=== PATIENT | female | born 1995 | race Caucasian/White ===

== ENCOUNTER 2021-04-22 15:45 | Outpatient (RCR) | payer OTHER, SELFPAY ==
--- NOTE | 2021-01-27 16:39 | PTOPEVAL ---
PHYSICAL THERAPY EVALUATION AND PLAN OF CARE Thank you for referring Dasia Gerber to [facility].? The patient is scheduled to be seen for therapy? 2x/week for 4 weeks. Please review, sign, date and return this plan of care JORGE. I agree with and certify that the following plan of care is medically necessary. 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 Dasia Barrett has Family been experiencing foot pain for over 10 years. At the time it started, surgery was an option but was not taken. Then about 3 years ago, she started therapy and injections but that was interrupted by a loss in the family and the pain has gradually worsened. She states severe pain in her feet. They saw the doctor this morning and report that he wants therapy for the arches of his feet, gait assessment, and on bunions. He also ordered braces to go around the arches of her feet. Pain Assessment Timing of Pain Assessment Timing of Pain Assessment Assessment Pain Scale Pain Scale Used Numeric (1 - 10) Self Report Pain Assessment Bilateral Foot/Feet Reported Pain Level 10 Pain Description Stabbing,Throbbing Pain Frequency Chronic,Intermittent Lowest Pain Intensity 10 Greatest Pain Intensity 10 Pain Aggravating Factors Exercise/Activity,Walking, Weight Bearing/Standing Pain Behaviors None Pain Score Pain Score 10: Self Report Interventions Used Interventions Used By Clinicians Exercise Pain Relief Interventions Used By Inactivity/Rest Patient Other Alleviating Interventions dorsiflexion stretching with towel in the mornings for 10seconds each side Lower Extremity Range of Motion Ankle/Foot Range of Motion Right Ankle Dorsiflexion With Knee Extension -28 Range of Motion - Active Ankle Dorsiflexion With Knee Flexed 0 Range of Motion - Active Ankle P
--- NOTE | 2021-02-05 10:25 | PCPTNOTE ---
Patient called & cancelled scheduled appointment this date due to having increase coughing.
--- NOTE | 2021-02-27 17:24 | PTOPEVAL ---
PHYSICAL THERAPY PLAN OF CARE UPDATE AND PROGRESS REPORT Thank you for referring Dasia Gerber to [facility].? The patient is scheduled to be seen for therapy? 2x/week for 4 weeks MORE OF PHYSICAL THERAPY. Please review, sign, date and return this plan of care JORGE. I agree with and certify that the following plan of care is medically necessary. 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 Dasia Barrett has Family been experiencing foot pain for over 10 years. At the time it started, surgery was an option but was not taken. Then about 3 years ago, she started therapy and injections but that was interrupted by a loss in the family and the pain has gradually worsened. She states severe pain in her feet. They saw the doctor this morning and report that he wants therapy for the arches of his feet, gait assessment, and on bunions. He also ordered braces to go around the arches of her feet. Self Report Pain Assessment Bilateral Foot/Feet Reported Pain Level 8 Pain Description Shooting,Stabbing,Throbbing Pain Frequency Chronic,Intermittent Pain Aggravating Factors Exercise/Activity,Walking, Weight Bearing/Standing Pain Behaviors None Pain Score Pain Score 8: Self Report Interventions Used Interventions Used By Clinicians Education,Exercise,Heat, Ultrasound Pain Relief Interventions Used By Inactivity/Rest Patient Other Alleviating Interventions . Lower Extremity Range of Motion Ankle/Foot Range of Motion Right Ankle Dorsiflexion With Knee Extension -21 Range of Motion - Active Ankle Dorsiflexion With Knee Flexed 0 Range of Motion - Active Ankle Plantarflexion Range of Motion - 80 Active Query Text: Ankle Eversion Range of Motion - Active 15 Ankle Inversion Range of Motion - Active 41 Left Ankle Dorsiflexion With Knee Extension -
--- NOTE | 2021-04-01 08:24 | PTOPEVAL ---
PHYSICAL THERAPY PROGRESS REPORT Thank you for referring Dasia Gerber to [facility].? The patient is scheduled to be seen for therapy? 2x/week for 4 weeks. Please review, sign, date and return this plan of care JORGE. I agree with and certify that the following plan of care is medically necessary. 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 Subjective Information continues to report high Query Text:As Reported By Patient/ levels of pain, but agrees Family that she is getting stronger and she is seeing improvements Self Report Pain Assessment Bilateral Foot/Feet Reported Pain Level 9 Pain Description Shooting,Stabbing,Throbbing Pain Frequency Chronic,Intermittent Pain Aggravating Factors Exercise/Activity,Walking, Weight Bearing/Standing Pain Behaviors None Pain Score Pain Score 9: Self Report Lower Extremity Range of Motion Ankle/Foot Range of Motion Right Ankle Dorsiflexion With Knee Extension 0 Range of Motion - Active Ankle Dorsiflexion With Knee Flexed 0 Range of Motion - Active Ankle Plantarflexion Range of Motion - 80 Active Query Text: Ankle Eversion Range of Motion - Active 15 Ankle Inversion Range of Motion - Active 41 Left Ankle Dorsiflexion With Knee Extension 0 Range of Motion - Active Ankle Plantarflexion Range of Motion - 80 Active Query Text: Ankle Eversion Range of Motion - Active 18 Ankle Inversion Range of Motion - Active 30 Lower Extremity Muscle Strength Testing Hip Strength Right Hip Flexion Strength 4+ Good + Hip Extension Strength 3+ Fair + Hip Abduction Strength 4 Good Left Hip Flexion Strength 4+ Good + Hip Extension Strength 3- Fair - Hip Abduction Strength 4 Good Knee Strength Bilateral Knee Flexion Strength 4+ Good + Knee Extension Strength 4+ Good + Ankle Strength Bilateral Ankle Dorsiflexion Strength 4+ Good + Ankle Plantarflexion Strength 4 Good Ankle Eversion Strength 4- Good - Ankle Inversion Strength 4+ Good + Palpation Assessment Palpation Palpation sensitivity continues to decrease Balance Assessment Time Up Go (TUG) Timed Up and Go Test (TUG) (Seconds) 8 5 Time Sit to Stand Time in Seconds 9.03 General Exercise General Exercises Side Bilateral Exercise Location feet Exercise Type Active,Resistive Exercise Description
--- NOTE | 2021-04-14 11:37 | PCPTNOTE ---
Patient called & cancelled scheduled appointment this date. No reason provided.
--- NOTE | 2021-04-16 14:42 | PCPTNOTE ---
Patient called & cancelled scheduled appointment this date due to being sick this week.
--- NOTE | 2021-04-22 15:32 | PCPTNOTE ---
Treatment date 04/09/21; charged for manual therapy performing STM to plantar fascia prone STM to gastroc; TPR right lateral gastroc; passive DF stretching to bilateral feet; charged for ultrasound on bilateral arch of foot for pain management and increase mobility with setting at 1.2 w/cm2 for 5min per foot with 1.0 continues for mode setting.
--- NOTE | 2021-04-24 15:41 | PCPTNOTE ---
Patient's mother called & cancelled scheduled appointment this date due to daughter having severe migraine.
--- NOTE | 2021-04-28 15:31 | PCPTNOTE ---
This treatment is being continued on visit number [id number]. Please see documentation on both accounts to view progress. Completed interventions, outcomes, and problems have been marked as Inactive to facilitate the copying of the Care plan routine for recurring accounts.
== END 2021-04-27 23:59 | disposition home or self-care (01) ==
LOC: ANHPT 15:45
DX: M72.2 Plantar fascial fibromatosis (principal)
CPT/HCPCS: 97033; 97035; 97110; 97140; 97162

== ENCOUNTER 2021-04-24 21:04 | Emergency (ER) | payer OTHER, SELFPAY ==
[2021-04-24 21:08] VITALS: BP 138/84; PULSE 92; RESP 20; TEMP 36.4; O2SAT 100
[2021-04-24 23:15] VITALS: BP 108/73; PULSE 78; RESP 14; O2SAT 98
[2021-04-24] MEDS: KETOROLAC 30 MG/ML VIAL (*BKC) IV PUSH (23:54)
[2021-04-24] MEDS: METOCLOPRAMIDE HCL INJ 10 MG/2 ML VIAL IV PUSH (23:55)
[2021-04-24] MEDS: diphenhydrAMINE HCl INJ 50 MG/ML VIAL IV PUSH (23:56)
[2021-04-25] MEDS: SODIUM CHLORIDE 0.9% IV 1,000 ML 999 ML IV CONT (00:01)
--- NOTE | 2021-04-25 00:18 | ED.GENADULT ---
HPI - General Adult General Chief complaint: Headache Stated complaint: migraine Time Seen by Provider: 04/24/21 23:18 History of Present Illness HPI narrative: Patient 25-year-old female presents emerged from with chief complaint of headache. Patient reports for the last 2 days she has been having a headache reports to photophobia nausea and a pounding headache patient reports that she has been diagnosed with headaches before in the past and is scheduled to see neurology the patient is currently taking Topamax but reports that is not helping her headaches. Patient reports symptoms are not improved by anything Related Data Home Medications Medication Instructions Recorded Confirmed aripiprazole mg 04/24/21 cholecalciferol (vitamin D3) 04/24/21 [Vitamin D3] fluoxetine mg 04/24/21 guanfacine mg 04/24/21 levothyroxine 04/24/21 ondansetron 04/24/21 Allergies Allergy/AdvReac Type Severity Reaction Status Date / Time lithium Allergy Rash Verified 04/24/21 21:08 Review of Systems Review of Systems: A 10 system review of systems was completed on the patient and is negative except for what is stated in the HPI. Nursing and ancillary documentation was reviewed. [facility] Social History Social History Gender identity (if verbalized by the patient): Female Exam Narrative: GENERAL: Well-appearing, well-nourished, and in no acute distress. HEAD: Normocephalic, atraumatic. EYES: PERRLA and EOMI. ENT: Nares clear, no rhinorrhea or epistaxis. Mucous membranes moist. NECK: Supple. CHEST: Clear to auscultation. No respiratory distress. HEART: Regular rate and rhythm. No murmur heard. Normal peripheral pulses. ABDOMEN: Soft, nontender, nondistended, normal active bowel sounds. EXTREMITIES: Normal range of motion. No edema. SKIN: Warm, dry, no rash. NEURO: No focal deficits. Alert and oriented x3. PSYCH: Normal mood and affect. Course Course Emergency Course: Patient received a dose of Toradol Reglan and Benadryl as well as IV fluids. The patient is feeling much better at this time and reports that her headache reduced from a 20 out of 10 to an 8 out of 10 Vital Signs Vital signs: Vital Signs Temperature 36.4 C L 04/24/21 21:08 Pulse Rate 92 04/24/21 21:08 Respiratory Rate 20 04/24/21 21:08 Blood Pressure 138/84 04/24/21 21:08 Pulse Oximetry 100 04/24/21 21:08 Temperature 36.4 C L 04/24/21 21:08 Pulse Rate 78 04/24/21 23:15 Respiratory Rate 14 04/24/21 23:15 Blood Pressure 108/73 04/24/21 23:15 Pulse Oximetry 98 04/24/21 23:15 Medical Decision Making Vital Signs Vital Signs: Vital Signs Temperature 36.4 C L 04/24/21 21:08 Pulse Rate 92 04/24/21 21:08 Respiratory Rate 20 04/24/21 21:08 Blood Pressure 138/84 04/24/21 21:08 Pulse Oximetry 100 04/24/21 21:08 Temperature 36.4 C L 04/24/21 21:08 Pulse Rate 78 04/24/21 23:15 Respiratory Rate 14 04/24/21 23:15 Blood Pressure 108/73 04/24/21 23:15 Pulse Oximetry 98 04/24/21 23:15 Discharge Plan Discharge Clinical Impression: Headache Qualifiers: Headache type: unspecified Headache chronicity pattern: unspecified pattern Intractability: not intractable Qualified Code(s): R51.9 - Headache, unspecified Patient Disposition: Home, Self-Care Condition: Stable Instructions: Antibiotic Form, Acute Headache (ED) Prescriptions: No Action levothyroxine 25 mcg tablet RF: 0 guanfacine 1 mg tablet RF: 0 ondansetron 4 mg tablet,disintegrating RF: 0 fluoxetine 20 mg capsule RF: 0 aripiprazole 10 mg tablet RF: 0 cholecalciferol (vitamin D3) [Vitamin D3] 25 mcg (1,000 unit) tablet RF: 0 Follow-up/Referrals: Crystal,Yoselin Thrasher APRN [Primary Care Provider] - Time of Disposition: 00:20
== END 2021-04-25 01:14 | disposition home or self-care (01) ==
PROVIDERS: Emergency Provider Emergency Medicine; PCP Nurse Practitioner Family
DX: R51.9 Headache, unspecified (principal)
CPT/HCPCS: 96361; 96374; 96375; 99284; J1200; J1885; J2765; J7030

== ENCOUNTER 2021-07-01 16:00 | Outpatient (RCR) | payer OTHER, SELFPAY ==
--- NOTE | 2021-04-28 15:31 | PCPTNOTE ---
The treatment documented on this account is a continuation of the treatment documented on visit number [id number]. Please see documentation on both accounts to view progress. The Plan of Care has been transitioned and updated within the new V#. I have addressed and agree with the discipline specific Problems, Interventions, and Goals for the current certification period. Completed interventions, outcomes, and problems have been marked as Inactive to facilitate the copying of the Care plan routine for recurring accounts.
--- NOTE | 2021-04-29 17:24 | PTOPEVAL ---
PHYSICAL THERAPY PLAN OF CARE UPDATE AND PROGRESS REPORT Thank you for referring Dasia Gerber to [facility].? The patient is scheduled to be seen for therapy? 2x/week for 4 weeks. Please review, sign, date and return this plan of care JORGE. I agree with and certify that the following plan of care is medically necessary. 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 Family Self Report Pain Assessment Bilateral Foot/Feet Reported Pain Level 4 Pain Description Aching Lowest Pain Intensity 4 Greatest Pain Intensity 8 Pain Score Lower Extremity Range of Motion Ankle/Foot Range of Motion Right Ankle Dorsiflexion With Knee Extension 10 Range of Motion - Active Ankle Eversion Range of Motion - Active 21 Ankle Inversion Range of Motion - Active 50 Left Ankle Dorsiflexion With Knee Extension 10 Range of Motion - Active Ankle Eversion Range of Motion - Active 21 Ankle Inversion Range of Motion - Active 50 Lower Extremity Muscle Strength Testing Hip Strength Right Hip Flexion Strength 4 Good Hip Extension Strength 4- Good - Hip Abduction Strength 4 Good Left Hip Flexion Strength 5 Normal Hip Extension Strength 4- Good - Hip Abduction Strength 4+ Good + Knee Strength Right Knee Flexion Strength 5 Normal Knee Extension Strength 5 Normal Left Knee Flexion Strength 4 Good Knee Extension Strength 4+ Good + Ankle Strength Right Ankle Dorsiflexion Strength 5 Normal Ankle Eversion Strength 4 Good Ankle Inversion Strength 4+ Good + Ankle Strength Comments unilateral heel raises: 8 Left Ankle Dorsiflexion Strength 5 Normal Ankle Eversion Strength 4 Good Ankle Inversion Strength 4+ Good + Ankle Strength Comments unilateral heel raises 03/02 General Exercise General Exercises Side Bilateral Exercise Location feet Exercise Type Active,Resistive Exercise Description -incline gastroc stretch Query Text:Record Sets, Reps, [id number] x3 Resistance, and Position - red band resisted marching - HEP -red band resisted side stepping with slight knee bend x20ft x2 each direction - HEP - eccentric heel raises (up two down on one) x10 each side - HEP
--- NOTE | 2021-06-04 17:22 | PTOPEVAL ---
PHYSICAL THERAPY PROGRESS REPORT Thank you for referring Dasia Gerber to [facility] [place][Note 2[facility]? The patient is scheduled to be seen for therapy?1x/week for 4 weeks. Please review, sign, date and return this plan of care JORGE. I agree with and certify that the following plan of care is medically necessary. 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 Both of her hips have really been bothering her for the last several weeks. Things like walking and stretching cause what she states is a pinching feeling and a pulling feeling. Sitting does not cause a pinching or pulling feeling. Stairs causing pinching feeling Self Report Pain Assessment Bilateral Hip(s) Reported Pain Level 5 Pain Description Pinching,Pulling Pain Frequency Acute,Continuous Bilateral Foot/Feet Reported Pain Level 2 Pain Description Aching Interventions Used Interventions Used By Clinicians Exercise,Manual Therapy Techniques Pain Relief Interventions Used By Inactivity/Rest Patient Lower Extremity Range of Motion Ankle/Foot Range of Motion Right Ankle Dorsiflexion With Knee Extension 10 Range of Motion - Active Ankle Eversion Range of Motion - Active 21 Ankle Inversion Range of Motion - Active 50 Left Ankle Dorsiflexion With Knee Extension 10 Range of Motion - Active Ankle Eversion Range of Motion - Active 21 Ankle Inversion Range of Motion - Active 50 Lower Extremity Muscle Strength Testing Hip Strength Right Hip Flexion Strength 5 Normal Hip Extension Strength 4- Good - Hip Abduction Strength 4 Good Left Hip Flexion Strength 5 Normal Hip Extension Strength 4- Good - Hip Abduction Strength 4 Good Knee Strength Right Knee Flexion Strength 5 Normal Knee Extension Strength 5 Normal Left Knee Flexion Strength 5 Normal Knee Extension Strength 5 Normal Ankle Strength Right Ankle Dorsiflexion Strength 5 Normal Ankle Eversion Strength
--- NOTE | 2021-06-18 12:49 | PCPTNOTE ---
Patient's mother called & cancelled scheduled appointment this date due to not feeling well.
--- NOTE | 2021-07-01 16:51 | PTOPEVAL ---
PHYSICAL THERAPY DISCHARGE NOTE Thank you for referring Dasia Gerber to [facility] [place].? Please review, sign, date and return this plan of care JORGE. I agree with and certify that the following plan of care is medically necessary. 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 Query Text:As Reported By Patient/ continues to report bilateral Family hip pain. States that she feels better after appointments but that the pain returns by the next session. Self Report Pain Assessment Bilateral Hip(s) Reported Pain Level 6 Pain Description Pinching,Pulling Pain Frequency Acute,Continuous Bilateral Foot/Feet Reported Pain Level 2 Pain Description Aching Pain Score Pain Score 6,2: Self Report Additional Pain Score Comments . Interventions Used Interventions Used By Clinicians Exercise Pain Relief Interventions Used By Inactivity/Rest Lower Extremity Muscle Strength Testing Hip Strength Right Hip Flexion Strength 5 Normal Hip Extension Strength 4 Good Hip Abduction Strength 4 Good Left Hip Flexion Strength 5 Normal Hip Extension Strength 4 Good Hip Abduction Strength 4 Good Knee Strength Right Knee Flexion Strength 5 Normal Knee Extension Strength 5 Normal Left Knee Flexion Strength 5 Normal Knee Extension Strength 5 Normal Ankle Strength Right Ankle Dorsiflexion Strength 5 Normal Ankle Eversion Strength 4+ Good + Ankle Inversion Strength 5 Normal Ankle Strength Comments unilateral heel raises: 20/20 Left Ankle Dorsiflexion Strength 5 Normal Ankle Eversion Strength 5 Normal Ankle Inversion Strength 5 Normal Ankle Strength Comments unilateral heel raises 16/20 Muscle Length Testing Muscle Length Testing Left Hamstring Length -15 Query Text:(90 - 90 Position) Right Hamstring Length -15 Query Text:(90 - 90 Position) Gastrocnemius Length (R) Mild Tightness,(L) Mild Tightness Gait Assessment Gait Pattern Assessment Other Gait Observations nearly normal gait pattern noted today without right foot whipping around. She still has an increased hip rotation General Exercise General Exercises Side Bilateral Exercise Location feet Exercise Type
== END 2021-07-02 08:52 | disposition home or self-care (01) ==
LOC: ANHPT 16:00
PROVIDERS: PCP Nurse Practitioner Family
DX: M72.2 Plantar fascial fibromatosis (principal)
CPT/HCPCS: 97110; 97140

== ENCOUNTER 2021-12-15 10:00 | Outpatient (RCR) | payer OTHER, SELFPAY ==
--- NOTE | 2021-11-17 10:57 | PTOPEVAL ---
PHYSICAL THERAPY INITIAL EVALUATION. Thank you for referring Dasia Gerber to [facility].? The patient is scheduled to be seen for therapy? 2x/week for 4 weeks. Please review, sign, date and return this plan of care JORGE. I agree with and certify that the following plan of care is medically necessary. Referring Physician Date Attending Provider: PHYSICIAN NOT ON STAFF *PT Outpatient Evaluation Start: 11/17/21 Evaluation Information Diagnosis Post-op bunion removal Onset 09/30/21 Subjective Information Pt states she had a bunion and Query Text:As Reported By Patient/ had surgery on 09/30/21 to get Family it removed. Pt reports it is painful to move her toes around, and increases if she is on her feet too much. Pts mother states she swings her hips out when she walks. Pt states when she walks she gets a pinching and grinding feeling in her hips. She reports occasionally her knees will ago go out on her when she walks up the stairs. Pts mother states she takes 500 mg Naproxen 2x/day. Pt reports she tries to avoid moving her toes due to the pain. Pain Assessment Left Toe, 1st Reported Pain Level 2 Pain Description Shooting,Stabbing,Tingling, With Movement Pain Frequency Intermittent Lowest Pain Intensity 2 Greatest Pain Intensity 7 Pain Aggravating Factors Bending,Walking,Weight Bearing /Standing Pain Behaviors Teary Eyed/Crying Additional Pain Comments Holds breath Lower Extremity Range of Motion Left Ankle Dorsiflexion With Knee Extension 5 Ankle Plantarflexion Range of Motion - 30 Ankle/Toe Range of Motion Limitations Pain,Soft Tissue Restriction Foot/Toe Range of Motion Comments R great toe extension 0-70 R great toe flexion 0-40 L great toe extension 0-40 L great toe flexion 0-4 Lower Extremity Muscle Strength Testing Gross Lower Extremity Strength L SLS - 11 sec R SLS - 27 sec B LE grossly 4-/5 B glute med 3+/5 Posture Hip Posture (L) Externally Rotated,(R) Externally Rotated Knee Posture
--- NOTE | 2021-12-15 13:50 | PTOPEVAL ---
PHYSICAL THERAPY PROGRESS REPORT AND DISCHARGE NOTE. Thank you for referring Dasia Gerber to [facility].? The patient is to be discharged from skilled physical therapy services at this time. Please review, sign, date and return this plan of care JORGE. I agree with and certify that the following plan of care is medically necessary. Referring Physician Date Attending Provider: PHYSICIAN NOT ON STAFF Evaluation Information Diagnosis Post-op bunion removal Onset 09/30/21 Subjective Information When asked how things are Query Text:As Reported By Patient/ going and how her foot is Family doing pt stated 4 . Pt states her foot is doing about the same. Pt states her toe hurts when she walks. Pts mother states she does not show a limp when walking or any signs that she is favoring her L foot. Pain Assessment Pain Score Pain Score 4: Self Report Lower Extremity Range of Motion Left Ankle Dorsiflexion With Knee Extension 5 active Ankle Plantarflexion Range of Motion - 50 active Ankle/Toe Range of Motion Limitations Pain,Soft Tissue Restriction Foot/Toe Range of Motion Comments R great toe extension 0-70 R great toe flexion 0-40 L great toe extension 0-46 L great toe flexion 0-18 Lower Extremity Muscle Strength Testing Gross Lower Extremity Strength L SLS - 22 sec R SLS - 27 sec B LE grossly 4-/5 B glute med 3+/5 Posture Posture Head/C-Spine Posture Forward Head Hip Posture (L) Externally Rotated,(R) Externally Rotated Knee Posture (L) Genu Valgus,(R) Genu Valgus,(L) Genu Recurvatum,(R) Genu Recurvatum Ankle/Foot Posture (L) Calcaneal Eversion,(R) Calcaneal Eversion Foot Arch Posture (L) Low Arch,(R) Low Arch Gait Assessment Gait Pattern Circumducted Gait Other Gait Observations B circumducted gait, with internal whip at the end of the swing phase, significantly increased lateral hip sway during stance. Stair Climbing Assessment Stair Climbing Comments Out-toeing during ambulation Bike Exercise Type of Bike Airdyne Exercise Comments to work on muscle endurance and posture stabilization with
== END 2021-12-16 14:33 | disposition home or self-care (01) ==
LOC: ANHPT 10:00
PROVIDERS: PCP Nurse Practitioner Family
DX: M20.12 Hallux valgus (acquired), left foot (principal)
CPT/HCPCS: 97110; 97112; 97140; 97161; 97530

== ENCOUNTER 2022-01-24 10:41 | Emergency (ER) | payer OTHER, SELFPAY ==
[2022-01-24 11:04] VITALS: BP 119/76; PULSE 101; RESP 16; TEMP 36.6; O2SAT 100
--- NOTE | 2022-01-24 11:41 | ED.URI ---
HPI - URI/Sore Throat General Chief Complaint: Upper Respiratory Infection Stated Complaint: Sore Throat,Cough Time Seen by Provider: 01/24/22 11:41 Source: patient Mode of arrival: ambulatory Limitations: no limitations History of Present Illness HPI Narrative: 26-year-old female presents with mom with complaint of nasal congestion, sore throat, cough, fatigue for 2 to 3 days. No fever. Is taking an bovj-tln-yqgcydi cold and flu medication. Denies chest pain and shortness of breath. No nausea vomiting diarrhea. All systems reviewed and negative except as noted above. Related Data Home Medications Medication Instructions Recorded Confirmed cholecalciferol (vitamin D3) 25 mcg PO DAILY 04/24/21 01/24/22 [Vitamin D3] aripiprazole 15 mg PO DAILY 01/24/22 01/24/22 divalproex 500 mg PO DAILY 01/24/22 01/24/22 fluticasone propionate 50 mcg INTRANASAL DAILY 01/24/22 01/24/22 loratadine 10 mg PO DAILY 01/24/22 01/24/22 montelukast 10 mg PO DAILY 01/24/22 01/24/22 naproxen 500 mg PO DIRECTED 01/24/22 01/24/22 norethindrone-e.estradiol-iron 1 tablet PO DAILY 01/24/22 01/24/22 [Blisovi Fe 10/02 ()] ondansetron 4 mg PO DIRECTED 01/24/22 01/24/22 paroxetine HCl 10 mg PO DAILY 01/24/22 01/24/22 topiramate 50 mg PO DAILY 01/24/22 01/24/22 ubrogepant [Ubrelvy] 50 mg PO DAILY 01/24/22 01/24/22 Allergies Allergy/AdvReac Type Severity Reaction Status Date / Time lithium Allergy Rash Verified 01/24/22 11:14 Review of Systems Review of Systems: CONSTITUTIONAL: Denies fever, chills, or sweats. EYES: Denies visual changes, redness, or discharge. ENT: Reports rhinorrhea, congestion, sore throat. Denies otalgia. CARDIOVASCULAR: Denies chest pain, palpitations, or edema. RESPIRATORY: Reports cough. Denies dyspnea. GASTROINTESTINAL: Denies abdominal pain, nausea, vomiting, or diarrhea. GENITOURINARY: Denies dysuria or hematuria. SKIN: Denies rash or itching. MUSCULOSKELETAL: Denies back pain, joint pain, or myalgia. NEUROLOGIC: Denies headache, numbness, or weakness. PSYCHIATRIC: Denies anxiety or depression. All other systems reviewed are negative, except as documented in HPI. PMFSH Social History Social History Gender identity (if verbalized by the patient): Female Comments At time of signature, agree with nursing past medical, surgical, social and family history. There is no relevant family history pertinent to the presenting complaint. Exam Narrative: GENERAL: This is a well-nourished, well-developed patient, in no apparent distress. HEAD: normocephalic, atraumatic. EYES: PERRL. Sclera clear/white. Vision is grossly intact. EARS: External ears normal, auditory canals clear and without drainage, TMs normal without perforation. Hearing grossly intact. NOSE: External nose normal with clear nasal drainage from both naris, mild congestion and erythema to both nares. THROAT: Mucous membranes moist, posterior pharynx clear. NECK: Neck supple, non-tender without lymphadenopathy, masses or thyromegaly. CARDIOVASCULAR: Regular rate and rhythm without murmurs, gallops, or rubs. RESPIRATORY: Clear to auscultation. Breath sounds equal bilaterally. No wheezes, rales, or rhonchi. SKIN: warm, Dry, intact with no suspicious lesions or rash, good texture and turgor. NEURO: awake, alert, and oriented to person, place and time. There were no obvious focal neurologic abnormalities. EXTREMITIES: Normal range of motion to all extremities. Course Course Level of Care: Express Care Visit Vital Signs Vital signs: Vital Signs Temperature 36.6 C 01/24/22 11:04 Pulse Rate 101 H 01/24/22 11:04 Respiratory Rate 16 01/24/22 11:04 Blood Pressure 119/76 01/24/22 11:04 Pulse Oximetry 100 01/24/22 11:04 Temperature 36.6 C 01/24/22 11:04 Pulse Rate 101 H 01/24/22 11:04 Respiratory Rate 16 01/24/22 11:04 Blood Pressure 119/76 01/24/22 11:04 Pulse Ox
== END 2022-01-24 12:34 | disposition home or self-care (01) ==
PROVIDERS: Emergency Provider Nurse Practitioner Family; PCP Family Medicine
DX: J01.90 Acute sinusitis, unspecified (principal); Z20.822 Contact with and (suspected) exposure to COVID-19
CPT/HCPCS: 87081; 87426; 87880; 99213; C9803; G0463

== ENCOUNTER 2022-01-30 18:03 | Emergency (ER) | payer OTHER, SELFPAY ==
[2022-01-30 18:11] VITALS: BP 125/78; PULSE 100; RESP 16; TEMP 36.9; O2SAT 100
--- NOTE | 2022-01-30 18:14 | ED.URI ---
HPI - URI/Sore Throat General Chief Complaint: Upper Respiratory Infection Stated Complaint: Sore Throat Time Seen by Provider: 01/30/22 18:14 Source: patient Mode of arrival: ambulatory Limitations: no limitations History of Present Illness HPI Narrative: 26-year-old female presents with complaint of runny nose, nasal congestion, sinus pressure, postnasal drainage, cough, sore throat for approximately 2 weeks. Has been using allergy medication daily. Has been seen here twice for same symptoms. At last visit was given steroids. Has completed steroids with no relief. Afebrile. All systems reviewed and negative except as noted above. Related Data Home Medications Medication Instructions Recorded Confirmed cholecalciferol (vitamin D3) 25 mcg PO DAILY 04/24/21 01/24/22 [Vitamin D3] aripiprazole 15 mg PO DAILY 01/24/22 01/24/22 divalproex 500 mg PO DAILY 01/24/22 01/24/22 fluticasone propionate 50 mcg INTRANASAL DAILY 01/24/22 01/24/22 loratadine 10 mg PO DAILY 01/24/22 01/24/22 montelukast 10 mg PO DAILY 01/24/22 01/24/22 naproxen 500 mg PO DIRECTED 01/24/22 01/24/22 norethindrone-e.estradiol-iron 1 tablet PO DAILY 01/24/22 01/24/22 [Blisovi Fe 10/02 ()] ondansetron 4 mg PO DIRECTED 01/24/22 01/24/22 paroxetine HCl 10 mg PO DAILY 01/24/22 01/24/22 topiramate 50 mg PO DAILY 01/24/22 01/24/22 ubrogepant [Ubrelvy] 50 mg PO DAILY 01/24/22 01/24/22 Allergies Allergy/AdvReac Type Severity Reaction Status Date / Time lithium Allergy Rash Verified 01/24/22 11:14 Review of Systems Review of Systems: CONSTITUTIONAL: Denies fever, chills, or sweats. EYES: Denies visual changes, redness, or discharge. ENT: Reports rhinorrhea, congestion, sore throat. Denies otalgia. CARDIOVASCULAR: Denies chest pain, palpitations, or edema. RESPIRATORY: Reports cough. Denies dyspnea. GASTROINTESTINAL: Denies abdominal pain, nausea, vomiting, or diarrhea. GENITOURINARY: Denies dysuria or hematuria. SKIN: Denies rash or itching. MUSCULOSKELETAL: Denies back pain, joint pain, or myalgia. NEUROLOGIC: Denies headache, numbness, or weakness. PSYCHIATRIC: Denies anxiety or depression. All other systems reviewed are negative, except as documented in HPI. PMFSH Social History Social History Gender identity (if verbalized by the patient): Female Comments At time of signature, agree with nursing past medical, surgical, social and family history. There is no relevant family history pertinent to the presenting complaint. Exam Narrative: GENERAL: This is a well-nourished, well-developed patient, in no apparent distress. HEAD: normocephalic, atraumatic. EYES: PERRL. Sclera clear/white. Vision is grossly intact. EARS: External ears normal, auditory canals clear and without drainage, TMs normal without perforation. Hearing grossly intact. NOSE: External nose normal with purulent nasal drainage, moderate congestion, erythema and swelling to both nares. Frontal and maxillary sinus tenderness bilaterally. THROAT: Mucous membranes moist, clear postnasal drainage. NECK: Neck supple, non-tender without lymphadenopathy, masses or thyromegaly. CARDIOVASCULAR: Regular rate and rhythm without murmurs, gallops, or rubs. RESPIRATORY: Clear to auscultation. Breath sounds equal bilaterally. No wheezes, rales, or rhonchi. SKIN: warm, Dry, intact with no suspicious lesions or rash, good texture and turgor. NEURO: awake, alert, and oriented to person, place and time. There were no obvious focal neurologic abnormalities. EXTREMITIES: Normal range of motion to all extremities. Course Course Level of Care: Express Care Visit Vital Signs Vital signs: Vital Signs Temperature 36.9 C 01/30/22 18:11 Pulse Rate 100 01/30/22 18:11 Respiratory Rate 16 01/30/22 18:11 Blood Pressure 125/78 01/30/22 18:11 Pulse Oximetry 100 01/30/22 18:11 Temperature 36.9 C 01/30/22 18:11 Pul
== END 2022-01-30 18:30 | disposition home or self-care (01) ==
PROVIDERS: Emergency Provider Nurse Practitioner Family; PCP Family Medicine
DX: J01.90 Acute sinusitis, unspecified (principal)
CPT/HCPCS: 99213; G0463

== ENCOUNTER 2022-10-28 18:28 | Emergency (ER) | payer OTHER, SELFPAY ==
[2022-10-28 18:40] VITALS: BP 142/85; PULSE 92; RESP 20; TEMP 36.8; O2SAT 99
[2022-10-28] MEDS: SODIUM CHLORIDE 0.9% IV 1,000 ML 999 ML IV CONT (22:26)
--- NOTE | 2022-10-28 22:26 | ED.HA ---
HPI - Headache General Chief Complaint: Headache <INDIA Washington Last Filed: 10/28/22 23:59> Stated Complaint: migraines <INDIA Washington Last Filed: 10/28/22 23:59> Time Seen by Provider: 10/28/22 21:52 <Cary Chaudhari PA-C - Last Filed: 10/28/22 23:59> Source: patient and family <INDIA Washington Last Filed: 10/28/22 23:59> Mode of arrival: ambulatory <INDIA Washington Last Filed: 10/28/22 23:59> Limitations: no limitations <INDIA Washington Last Filed: 10/28/22 23:59> History of Present Illness HPI Narrative: Patient is a 26-year-old female, with past medical history of migraines and mental illness, who presents to the ED with her mother with report of a headache for the past 2 weeks. Patient reports having a daily headache for the past 2 weeks. Pain is temporal/frontal and goes down the back of head to her neck. She states it feels typical of her usual migraines, but has not been improved with her Imitrex that she is prescribed from her neurologist. Her neurologist and her psychiatrist have reportedly been trying to find a new medication for patient's migraines. Patient took 2 Imitrex today without relief. She also reports having nausea, vomiting, photophobia, phonophobia, but she denies significant vision changes, weakness, fevers, confusion, dysarthria, trouble walking or talking. <INDIA Washington Last Filed: 10/28/22 23:59> Related Data Home Medications: Home Medications Medication Instructions Recorded Confirmed cholecalciferol (vitamin D3) 25 25 mcg PO DAILY 04/24/21 01/24/22 mcg (1,000 unit) tablet (Vitamin D3) aripiprazole 15 mg tablet 15 mg PO DAILY 01/24/22 01/24/22 divalproex 500 mg tablet,extended 500 mg PO DAILY 01/24/22 01/24/22 release 24 hr fluticasone propionate 50 50 mcg intranasal DAILY 01/24/22 01/24/22 mcg/actuation nasal spray,suspension loratadine 10 mg tablet 10 mg PO DAILY 01/24/22 01/24/22 montelukast 10 mg tablet 10 mg PO DAILY 01/24/22 01/24/22 naproxen 500 mg tablet 500 mg PO DIRECTED 01/24/22 01/24/22 norethindrone 1 mg-ethinyl 1 tablet PO DAILY 01/24/22 01/24/22 estradiol 20 mcg (21)-iron 75 mg (7) tablet (Blisovi Fe 10/02 (28)) ondansetron 4 mg disintegrating 4 mg PO DIRECTED 01/24/22 01/24/22 tablet paroxetine HCl 10 mg tablet 10 mg PO DAILY 01/24/22 01/24/22 topiramate 50 mg tablet 50 mg PO DAILY 01/24/22 01/24/22 ubrogepant 50 mg tablet (Ubrelvy) 50 mg PO DAILY 01/24/22 01/24/22 <Cary Chaudhari PA-C - Last Filed: 10/28/22 23:59> Allergies/Adverse Reactions: Allergies Allergy/AdvReac Type Severity Reaction Status Date / Time lithium Allergy Rash Verified 10/28/22 21:53 <INDIA Washington Last Filed: 10/28/22 23:59> Review of Systems Review of Systems: CONSTITUTIONAL: Denies fever, chills, or sweats. EYES: Reports photophobia. Denies visual changes. ENT: Reports phonophobia. Denies rhinorrhea, congestion, sore throat, or otalgia. CARDIOVASCULAR: Denies chest pain. RESPIRATORY: Denies dyspnea. GASTROINTESTINAL: See HPI. GENITOURINARY: Denies dysuria or hematuria. MUSCULOSKELETAL: See HPI. NEUROLOGIC: See HPI. <INDIA Washington Last Filed: 10/28/22 23:59> All systems reviewed & are unremarkable except as noted in HPI and below <INDIA Washington Last Filed: 10/28/22 23:59> PMFSH Past Medical History Medical History: Medical History Migraines <Cary Chaudhari PA-C - Last Filed: 10/28/22 23:59> Surgical History Surgical History: Surgical History No pertinent past surgical history <Cary Chaudhari PA-C - Last Filed: 10/28/22 23:59> Social History Social History: Social History (Reviewed 10/28/22 @ 23:26 by Cary Marie
[2022-10-28] MEDS: METOCLOPRAMIDE HCL INJ 10 MG/2 ML VIAL IV PUSH (22:27)
[2022-10-28] MEDS: KETOROLAC 30 MG/ML VIAL (*BKC) IV PUSH (22:28)
[2022-10-28] MEDS: diphenhydrAMINE HCl INJ 50 MG/ML VIAL 25 MG IV PUSH (22:28)
[2022-10-29 00:10] VITALS: BP 124/78; PULSE 90; RESP 16; O2SAT 98
== END 2022-10-29 00:10 | disposition home or self-care (01) ==
PROVIDERS: Emergency Provider Physician Assistant; PCP Family Medicine
DX: G43.909 Migraine, unspecified, not intractable, without status migrainosus (principal)
CPT/HCPCS: 96365; 96375; 99284; J0131; J1100; J1200; J1885; J2765; J7030

== ENCOUNTER 2022-11-15 13:18 | Emergency (ER) | payer OTHER, SELFPAY ==
[2022-11-15 13:27] VITALS: BP 130/75; PULSE 112; RESP 16; TEMP 37.2; O2SAT 100
--- NOTE | 2022-11-15 13:51 | ED.GENADULT ---
HPI - General Adult General Chief complaint: Upper Respiratory Infection Stated complaint: Sinus Source: patient and family Mode of arrival: ambulatory Limitations: no limitations History of Present Illness HPI narrative: Patient presents for evaluation of sick symptoms since last night. Symptoms include cough, rhinorrhea, sore throat, head pressure without headache per se. No fever, chills, nausea, vomiting, diarrhea. She took a dose of mucinex which did not help her symptoms. She does not smoke. She thinks she was exposed to a respiratory infection at work. Related Data Home Medications Medication Instructions Recorded Confirmed aripiprazole 15 mg tablet 15 mg PO DAILY 01/24/22 01/24/22 fluticasone propionate 50 50 mcg intranasal DAILY 01/24/22 01/24/22 mcg/actuation nasal spray,suspension loratadine 10 mg tablet 10 mg PO DAILY 01/24/22 01/24/22 montelukast 10 mg tablet 10 mg PO DAILY 01/24/22 01/24/22 naproxen 500 mg tablet 500 mg PO DIRECTED 01/24/22 01/24/22 norethindrone 1 mg-ethinyl 1 tablet PO DAILY 01/24/22 01/24/22 estradiol 20 mcg (21)-iron 75 mg (7) tablet (Blisovi Fe 10/02 (28)) paroxetine HCl 10 mg tablet 10 mg PO DAILY 01/24/22 01/24/22 topiramate 50 mg tablet 50 mg PO DAILY 01/24/22 01/24/22 ubrogepant 50 mg tablet (Ubrelvy) 50 mg PO DAILY 01/24/22 01/24/22 Allergies Allergy/AdvReac Type Severity Reaction Status Date / Time lithium Allergy Rash Verified 11/15/22 13:32 Review of Systems Review of Systems: CONSTITUTIONAL: Denies fever, chills, or sweats. EYES: Denies visual changes, redness, or discharge. ENT: Reports sore throat and rhinorrhea. Denies congestion, otalgia. CARDIOVASCULAR: Denies chest pain, palpitations, or edema. RESPIRATORY:Reports cough. Denies dyspnea. GASTROINTESTINAL: Denies abdominal pain, nausea, vomiting, or diarrhea. GENITOURINARY: Denies dysuria or hematuria. SKIN: Denies rash or itching. MUSCULOSKELETAL: Denies back pain, joint pain, or myalgia. NEUROLOGIC: Reports head pressure. Denies headache per se. Denies numbness, dizziness, or weakness. PSYCHIATRIC: Denies anxiety or depression. [facility] Past Medical History Medical History Bipolar 1 disorder Migraines Surgical History Surgical History No pertinent past surgical history Family History Family History (Updated 11/15/22 @ 13:57 by TERRY Reece, ) Mother Family history non-contributory Social History Social History Smoking status: Never smoker Alcohol intake: never Substance use: never Living arrangements: with family Gender identity (if verbalized by the patient): Female Spiritual care concerns: No Exam Narrative: GENERAL: Well-appearing, well-nourished, and in no acute distress. HEAD: Normocephalic, atraumatic. EYES: PERRLA and EOMI. ENT: Nares clear, no rhinorrhea or epistaxis. Mucous membranes moist. Oropharynx without tonsillar hypertrophy exudate or other lesions. Bilateral TMs pearly [place]argo nonbulging NECK: Supple. No adenopathy or masses. No carotid bruits or JVD CHEST: Clear to auscultation. Cough present on exam. No respiratory distress. No wheezes rales or rhonchi HEART: Regular rate and rhythm. No murmur heard. Normal peripheral pulses. ABDOMEN: Soft, nontender, nondistended, normal active bowel sounds. EXTREMITIES: Normal range of motion. No edema. SKIN: Warm, dry, no rash. NEURO: No focal deficits. Alert and oriented x3. PSYCH: Normal mood and affect. Course Course Emergency Course: This is a 26-year-old female who presented for evaluation of cough. Influenza and strep were negative. COVID positive. Discussed utcu-uhs-hrryyua agents for symptom management. Advised against Paxlovid due to potential for rebound. Provided with education regarding quaran
== END 2022-11-15 15:01 | disposition home or self-care (01) ==
PROVIDERS: Emergency Provider Nurse Practitioner; PCP Family Medicine
DX: U07.1 COVID-19 (principal)
CPT/HCPCS: 87081; 87426; 87804; 87880; 99213; C9803; G0463

== ENCOUNTER 2022-12-04 08:00 | Outpatient (RCR) | payer OTHER, SELFPAY ==
--- NOTE | 2022-10-20 10:07 | PTOPEVAL1 ---
Assessment and note entered by Manjula Bowles PT Evaluation Information Assessment Status Evaluation Diagnosis Sprain of Calcaneofibular ligament R ankle Onset ~3 months ago Subjective Information Per pt's mother, pt was in a penitentiary in [place] ~3 months ago when injury happened (pt now living with multiple different family members). Initially it was thought the pt had a fractured ankle and was placed in cast with crutches. Pt was then moved into CAM boot ~1 month after cast. Pt' s mother reports pt was in a boot for 2 months. Per pt, pt's doctor then told pt to get high top shoes for ankle stability. Reported Pain Level Pain Score 2: Self Report Assessment PT Clinical Summary Pt is a 26 year old who sustained a Sprain of Calcaneofibular ligament R ankle ~3 months ago. Pt reports this is the only ankle sprain she has had . Pt noted to be hypermobile in adrien knees. Pt noted to have increase inversion on R vs L. Pt's Single leg balance 35 sec. Pt able to ambulate 410ft in 2 minute walk test. Pt's R ankle to have poor strength more so in eversion and inversion with noted pain with testing. Pt and pt's mother educated/trained on HEP strengthening and walking program at home. Pt educated on proper shoe wear. Pt will benefit from skilled therapy to increase R ankle stability, R ankle strengthening, and improve overall gait mechanics to reduce risk of repeated injury. Plan of Care Interventions Electrical Stimulation,Gait Training,Hot Pack/Cold Pack,Manual Therapy,Neuro Re-education,Patient/ Caregiver Education,Therapeutic Activities, Therapeutic Exercise,Ultrasound PT Services Indicated Yes Treatment Frequency and 2x/week for 8 visits was recommended. However, pt Duration and pt's mother stated they can only attend once every other week. Therefore frequency will be 0-1x /week for 4 visits These treatments will address the objective and functional deficits as defined above. The patient will be advanced safely and appropriately in order for the patient to progress towards his/her prior level of function. Additional exercises will be introduced and as well as a comprehensive home exercise program upon discharge, if needed, ?to ensure carryover of functional gains achieved in the clinic. This treatment plan has been reviewed and agreement upon by the patient.
--- NOTE | 2022-10-20 10:23 | PTOPEVAL1 ---
Assessment and note entered by Manjula Bowles PT Evaluation Information Assessment Status Evaluation Diagnosis Sprain of Calcaneofibular ligament R ankle Onset ~3 months ago Subjective Information Per pt's mother, pt was in a senior care in [place] ~3 months ago when injury happened (pt now living with multiple different family members). Initially it was thought the pt had a fractured ankle and was placed in cast with crutches. Pt was then moved into CAM boot ~1 month after cast. Pt' s mother reports pt was in a boot for 2 months. Per pt, pt's doctor then told pt to get high top shoes for ankle stability. Reported Pain Level Pain Score 2: Self Report Additional Pain Score Comments Pt's pain ranged from 2-4/10 with activity, 2-3 with rest. Assessment PT Clinical Summary Pt is a 26 year old who substained a Sprain of Calcaneofibular ligament R ankle ~3 months ago. Pt reports this is the only ankle sprain she has had . Pt unable to identify reason/cause/time of injury. Pt noted to be hypermobile in adrien knees. Pt noted to have increase inversion on R vs L. Pt' s Single leg balance 35 sec. Pt able to ambulate 410ft in 2 minute walk test. Pt's R ankle to have poor strength more so in eversion and inversion with noted pain with testing. Pt and pt's mother educated/trained on HEP strengthening and walking program at home. Pt educated on proper shoe wear. Pt will benefit from skilled therapy to increase R ankle stability, R ankle strengthening (HEP given ), reduce R ankle pain, and improve overall gait mechanics to reduce risk of repeated injury. Plan of Care Interventions Electrical Stimulation,Gait Training,Hot Pack/Cold Pack,Manual Therapy,Neuro Re-education,Patient/ Caregiver Educati,Therapeutic Activities, Therapeutic Exercise,Ultrasound PT Services Indicated Yes Treatment Frequency and 2x/week for 8 visits was recommended. However, pt Duration and pt's mother stated they can only attend once every other week. Therefore frequency will be 0-1x /week for 4 visits These treatments will address the objective and functional deficits as defined above. The patient will be advanced safely and appropriately in order for the patient to progress towards his/her prior level of function. Additional exercises will be introduced and as well as a comprehensive home exercise program upon discharge, if needed, ?to ensure carryover of functional gains achieved in the clinic. This treatment plan has been reviewed and agreement upon by the patient.
--- NOTE | 2022-11-20 17:09 | PCPTNOTE ---
Patient called & cancelled scheduled appointment this date due to Covid
--- NOTE | 2022-12-04 08:33 | PTOPDC ---
Assessment and note entered by Concepcion West, PT Evaluation Information Assessment Status Discharge Diagnosis Sprain of Calcaneofibular ligament R ankle Onset ~3 months ago Subjective Information Dasia reports: have returned to doing everything now; no pain in ankle; have pain in both hips-- have impingement in both hips, to see ortho dr next month; Reported Pain Level Pain Score 0: Self Report Additional Pain Score Comments no pain in ankle over the past week; Assessment PT Clinical Summary Dasia has received 3 PT sessions, due to her availability to attend therapy. Compared to the initial evaluation: no longer has pain in ankle; ankle active ROM is WNL and has good strength of ankle; She has been educated with HEP, and posture/ position of ankle and foot,with need for arch support to improve calcaneal positioning. Discharge PT services. Plan of Care PT Services Indicated No [facility] PT services
== END 2022-12-04 10:53 | disposition home or self-care (01) ==
LOC: ANHPT 08:00
PROVIDERS: PCP Family Medicine
DX: S93.411D Sprain of calcaneofibular ligament of right ankle, subsequent encounter (principal)
CPT/HCPCS: 97110; 97116; 97161; 97530

== ENCOUNTER 2023-04-13 17:31 | Emergency (ER) | payer OTHER, SELFPAY ==
--- NOTE | 2023-04-13 17:45 | ED.URI ---
HPI - URI/Sore Throat General Chief Complaint: Upper Respiratory Infection Stated Complaint: Sinus Time Seen by Provider: 04/13/23 18:00 History of Present Illness HPI Narrative: 27-year-old female presented for complaint of sore throat, cough, nasal congestion and body aches over the past 4 days. The day of onset she had an episode of vomiting which she attributed to postnasal drainage gagging her. She denies shortness of breath, wheezing, nausea, vomiting, diarrhea, fevers or chills. Taking Mucinex for symptoms. Related Data Home Medications Medication Instructions Recorded Confirmed aripiprazole 15 mg tablet 15 mg PO DAILY 01/24/22 01/24/22 fluticasone propionate 50 50 mcg intranasal DAILY 01/24/22 01/24/22 mcg/actuation nasal spray,suspension loratadine 10 mg tablet 10 mg PO DAILY 01/24/22 01/24/22 montelukast 10 mg tablet 10 mg PO DAILY 01/24/22 01/24/22 naproxen 500 mg tablet 500 mg PO DIRECTED 01/24/22 01/24/22 norethindrone 1 mg-ethinyl 1 tablet PO DAILY 01/24/22 01/24/22 estradiol 20 mcg (21)-iron 75 mg (7) tablet (Blisovi Fe 10/02 (28)) paroxetine HCl 10 mg tablet 10 mg PO DAILY 01/24/22 01/24/22 topiramate 50 mg tablet 50 mg PO DAILY 01/24/22 01/24/22 ubrogepant 50 mg tablet (Ubrelvy) 50 mg PO DAILY 01/24/22 01/24/22 propranolol 10 mg tablet mg 04/13/23 rizatriptan 5 mg disintegrating mg 04/13/23 tablet Allergies Allergy/AdvReac Type Severity Reaction Status Date / Time lithium Allergy Rash Verified 04/13/23 17:49 Review of Systems Review of Systems: CONSTITUTIONAL: Reports body aches, denies fever, chills, or sweats. EYES: Denies visual changes, redness, or discharge. ENT: Reports rhinorrhea, congestion, sore throat denies otalgia. CARDIOVASCULAR: Denies chest pain, palpitations, or edema. RESPIRATORY: Denies dyspnea. GASTROINTESTINAL: Denies abdominal pain, nausea, vomiting, or diarrhea. SKIN: Denies rash, itching, or wounds. MUSCULOSKELETAL: Denies back pain, joint pain, or myalgia. NEUROLOGIC: Denies headache PMFSH Past Medical History Medical History Bipolar 1 disorder Migraines Surgical History Surgical History No pertinent past surgical history Family History Family History Mother Family history non-contributory Social History Social History Smoking status: Never smoker Alcohol intake: never Substance use: never Living arrangements: with family Gender identity (if verbalized by the patient): Female Spiritual care concerns: No Exam Narrative: GENERAL: Mildly ill-appearing, no acute distress. EYES: conjunctivae clear ENT: Mucous membranes moist. TM pearly camargo with normal light reflex bilaterally; no tragal tenderness. Oropharynx erythematous without lesions. Tonsils enlarged and without exudate. No drooling, no hoarseness, no trismus, uvula midline. No tripod positioning, hot potato voice, or soft palate swelling. NECK: Supple. No lymphadenopathy CHEST: Clear to auscultation, breath sounds equal. No respiratory distress, speaks in full sentences. HEART: Regular rate and rhythm. No murmur heard. SKIN: Warm, dry, no rash. NEURO: Alert and oriented x3. Course Course Emergency Course: Patient is aware of diagnosis, understands and agrees to treatment plan. Anticipatory guidance given. Patient agrees to follow-up as directed and is aware of reasons to seek care at the emergency department. Portions of this record may have been created with voice recognition software Level of Care: Express Care Visit Vital Signs Vital signs: Vital Signs Temperature 98.4 F 04/13/23 17:47 Pulse Rate 81 04/13/23 17:47 Respiratory Rate 16 04/13/23 17:47 Blood Pressure 127/66 04/13/23 17:47 Pulse Oximetry
[2023-04-13 17:47] VITALS: BP 127/66; PULSE 81; RESP 16; TEMP 36.9; O2SAT 100
== END 2023-04-13 18:45 | disposition home or self-care (01) ==
PROVIDERS: Emergency Provider Nurse Practitioner Family; PCP Family Medicine
DX: J06.9 Acute upper respiratory infection, unspecified (principal); Z20.822 Contact with and (suspected) exposure to COVID-19
CPT/HCPCS: 87081; 87426; 87880; 99213; C9803; G0463

== ENCOUNTER 2023-04-18 09:45 | Emergency (ER) | payer OTHER, SELFPAY ==
[2023-04-18 09:55] VITALS: BP 122/87; PULSE 88; RESP 16; TEMP 36.9; O2SAT 100
--- NOTE | 2023-04-18 10:10 | ED.URI ---
HPI - URI/Sore Throat General Chief Complaint: Upper Respiratory Infection Stated Complaint: Cough Time Seen by Provider: 04/18/23 10:10 Source: patient, RN notes reviewed and old records reviewed Mode of arrival: ambulatory Limitations: no limitations History of Present Illness HPI Narrative: 27 year old female who [facility] accompanied by mother who has similar symptoms with complaints of 10 day history of head congestion which has also gone now to chest congestion with productive cough of greenish tinged phlegm. Patient reports that she was seen in clinic on the of month for URI symptoms and sore throat with negative strep screen and COVID at that time. Patient reports that she continues to have some sinus congestion and drainage but now also chest congestion with cough that is productive.Patient is taking Mucinex, denies any known fevers, chills or sweats or body aches. MD elicited complaint: cough, rhinorrhea, nasal congestion and other (chest congestion) Onset (ago): day(s) (10) Consistency: progressively worsening Pain scale (0-10): 3 Description of mucous: green Able to tolerate fluids by mouth: Yes Exacerbating factors: supine positioning Treatments prior to arrival: other (Mucinex, flonase,Claritin) Related Data Home Medications Medication Instructions Recorded Confirmed aripiprazole 15 mg tablet 15 mg PO DAILY 01/24/22 04/18/23 fluticasone propionate 50 50 mcg intranasal DAILY 01/24/22 04/18/23 mcg/actuation nasal spray,suspension loratadine 10 mg tablet 10 mg PO DAILY 01/24/22 04/18/23 montelukast 10 mg tablet 10 mg PO DAILY 01/24/22 04/18/23 naproxen 500 mg tablet 500 mg PO DIRECTED 01/24/22 04/18/23 norethindrone 1 mg-ethinyl 1 tablet PO DAILY 01/24/22 04/18/23 estradiol 20 mcg (21)-iron 75 mg (7) tablet (Blisovi Fe 10/02 ()) paroxetine HCl 10 mg tablet 10 mg PO DAILY 01/24/22 04/18/23 topiramate 50 mg tablet 50 mg PO DAILY 01/24/22 04/18/23 ubrogepant 50 mg tablet (Ubrelvy) 50 mg PO DAILY 01/24/22 04/18/23 propranolol 10 mg tablet 10 mg PO DAILY 04/13/23 04/18/23 rizatriptan 5 mg disintegrating 5 mg PO DAILY 04/13/23 04/18/23 tablet Allergies Allergy/AdvReac Type Severity Reaction Status Date / Time lithium Allergy Rash Verified 04/18/23 10:13 Review of Systems Review of Systems: CONSTITUTIONAL: Denies malaise, chills, sweats, or fever. EYES: Denies visual changes, redness, or discharge. ENT: Reports rhinorrhea, congestion, sinus pain,no otalgia or sore throat. CARDIOVASCULAR: Denies chest pain, palpitations, or edema. RESPIRATORY: Reports productive cough.? Denies dyspnea.increase cough when supine and reports noted wheezes GASTROINTESTINAL: Denies abdominal pain, nausea, vomiting, diarrhea SKIN: Denies rash or itching. MUSCULOSKELETAL: Denies myalgia. NEUROLOGIC: Denies headache. All systems reviewed & are unremarkable except as noted in HPI and below PMFSH Past Medical History Medical History Bipolar 1 disorder Migraines Surgical History Surgical History No pertinent past surgical history Family History Family History Mother Family history non-contributory Social History Social History Smoking status: Never smoker Alcohol intake: never Substance use: never Living arrangements: with family Gender identity (if verbalized by the patient): Female Spiritual care concerns: No Comments At time of signature, agree with nursing past medical, surgical, social and family history. There is no relevant family history pertinent to the presenting complaint Exam Narrative: GENERAL: Well-appearing, well-nourished, and in no acute distress. HEAD: Normocephalic EYES: PERRLA, conjunctivae clear ENT: Nardebra rodriguez
== END 2023-04-18 10:45 | disposition home or self-care (01) ==
PROVIDERS: Emergency Provider Registered Nurse; PCP Family Medicine
DX: J40 Bronchitis, not specified as acute or chronic (principal); Z79.1 Long term (current) use of non-steroidal anti-inflammatories (NSAID)
CPT/HCPCS: 99213; G0463

== ENCOUNTER 2023-07-29 13:00 | Outpatient (RCR) | payer OTHER, SELFPAY ==
--- NOTE | 2023-06-04 14:48 | OPREHPOC ---
Outpatient Therapy Plan of Care This is a Multidisciplinary Plan of Care that may contain components documented by all disciplines (PT, OT, and ST.) PT Problem 1 PT Problem #1 Knowledge Deficit PT Goal 1 Goal 1* indep with HEP 2* correct use of walker for R TDWB pattern PT Problem 2 PT Problem #2 Pain PT Goal 1 Goal 1* pt report pain at worst of 6/10 PT Problem 3 PT Problem #3 Impaired Strength PT Goal 1 Goal 1* R hip strength in supine: pt perform 20 reps of exercises PT Problem 4 PT Problem #4 Impaired Functional Mobil PT Goal 1 Goal 1* pt ambulate with assistive device, R TDWB 300' 2* pt up/down 4 steps with one hand railing, CGA for safety
--- NOTE | 2023-06-04 14:48 | PTOPEVAL1 ---
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 Subjective Information chronic pain in hip, falls; finally have a diagnosis of impingement and labral tear, with surgery scheduled Jun 24 and to continue therapy post op; had previous PT for leg weakness and her pain got worse, so stopped; have stationary bike at home--not using due to pain in her hip; have 4 entry steps into home with 1 hand rail and full flight of stairs to bedroom with 1 hand railing; plan to stay on the main level after surgery; Activity: do not use assistive device; 1 fall in the past 6 months, on stairs, landed on butt; volunteer at [employer], home with family; do not do any fitness exercises; Reported Pain Level Pain Score Self Report Additional Pain Score Comments pain range in the past week 5-10/10; increase pain: sitting 30-45 min; more activity-- walking 30 min when push it decrease pain: change positions, over the counter meds/naproxen do not use heat/ice- reinforced use PRN; Assessment PT Clinical Summary Dasia has the diagnosis of R hip impingement and is scheduled for surgery Jun 24. Her orders are for pre op training, education and strengthening prior to surgery. Her mom was present and very supportive to pt. With the evaluation, she has pain with all supine R hip motions and strengthening exercises in supine. Education and gait training completed on flat surface. Skilled PT services are indicated pre op, for one visit to complete education and stair training. Post op treatment for strengtheing, mobility and education after surgery, per instructions. Plan of Care Interventions Gait Training,Neuro Re-education,Patient/Caregiver Education,Therapeutic Activities,Therapeutic
--- NOTE | 2023-07-23 11:45 | PCPTNOTE ---
pt called and canceled due to being ill.
--- NOTE | 2023-07-26 12:01 | PCPTNOTE ---
pt called and canceled due to being ill.
--- NOTE | 2023-07-29 13:54 | PTOPDC ---
Assessment and note entered by Concepcion West, PT Evaluation Information Assessment Status Progress Diagnosis femoroacetabular impingement, degenerative labral tear of hip, R hip pain Onset fci- chronic Subjective Information feel much better; riding stationary bike for 14 min, 2x/day; doing all the leg exercises OK, 20 reps; go to dr next week; is back to doing the normal activities--vaccum at home, moving light totes getting ready to move; Reported Pain Level Pain Score 0 Self Report Additional Pain Score Comments no pain in the past week; with progression of exercises reported pain of 3/10; Assessment PT Clinical Summary Dasia Barrett has received 6 PT sessions. Two appointments were canceled due to illness. Compared to the initial eval, she has improved in all areas. She reports she has returned to her normal activity level at home. Gait pattern is good, without assistive device. R hip ROM in supine is WNL, except hamstring stretch with SLR is 40' ( L is 60'). Pain rating of 0-3/10. Pain increase to 3/10 with exercises. Strength: she is able to perform 20 reps of mat exercises for R hip. Single leg standing with good stability is 28 seconds. She has trunk weakness with the planks from her knees: forward/prone 17 sec, side R 3 sec and side L 8 second hold times. Education completed for HEP, to pt and her mom reminds her to perform them. The goals were achieved. Discharge PT services. Dasia Barrett has returned to her normal activity level. She and mom agrees to discharge therapy. Plan of Care PT Services Indicated No
== END 2023-07-29 15:00 | disposition home or self-care (01) ==
LOC: ANHPT 13:00
PROVIDERS: PCP Family Medicine
DX: M25.851 Other specified joint disorders, right hip (principal); S73.191A Other sprain of right hip, initial encounter
CPT/HCPCS: 97110; 97116; 97140; 97161; 97530

== ENCOUNTER 2024-02-28 10:25 | Emergency (ER) | payer OTHER, SELFPAY ==
[2024-02-28 10:31] VITALS: BP 120/84; PULSE 106; RESP 16; TEMP 36.6; O2SAT 97
--- NOTE | 2024-02-28 10:51 | ED.URI ---
HPI - URI/Sore Throat General Chief Complaint: Upper Respiratory Infection Stated Complaint: cold sx, hives Time Seen by Provider: 02/28/24 10:33 Source: patient Mode of arrival: ambulatory Limitations: no limitations History of Present Illness HPI Narrative: Patient is a 28-year-old female, with PMH of bipolar disorder, who presents the ED with report of cough and hives. Patient reports she began feeling ill yesterday with cough, congestion, sore throat, sneezing. She has been taking Mucinex at home. She then began noticing a hive-like rash to her arms, legs, lower back/ buttocks. She tried using Benadryl cream without much improvement. States the rash is very itchy and fatima. Denies fevers. Denies known sick contacts. Denies family members with similar symptoms. Mother at bedside does report that patient had an oral herpes flare last week and took a few additional doses of her daily acyclovir with improvement. Patient denies difficulty breathing or swallowing. Denies any new laundry detergents, body wash, soap, lotion, medications. Related Data Home Medications Medication Instructions Recorded Confirmed aripiprazole 15 mg tablet 15 mg PO DAILY 01/24/22 04/18/23 fluticasone propionate 50 50 mcg intranasal DAILY 01/24/22 04/18/23 mcg/actuation nasal spray,suspension loratadine 10 mg tablet 10 mg PO DAILY 01/24/22 04/18/23 montelukast 10 mg tablet 10 mg PO DAILY 01/24/22 04/18/23 naproxen 500 mg tablet 500 mg PO DIRECTED 01/24/22 04/18/23 norethindrone 1 mg-ethinyl 1 tablet PO DAILY 01/24/22 04/18/23 estradiol 20 mcg (21)-iron 75 mg (7) tablet (Blisovi Fe 10/02 (28)) paroxetine HCl 10 mg tablet 10 mg PO DAILY 01/24/22 04/18/23 topiramate 50 mg tablet 50 mg PO DAILY 01/24/22 04/18/23 ubrogepant 50 mg tablet (Ubrelvy) 50 mg PO DAILY 01/24/22 04/18/23 propranolol 10 mg tablet 10 mg PO DAILY 04/13/23 04/18/23 rizatriptan 5 mg disintegrating 5 mg PO DAILY 04/13/23 04/18/23 tablet Allergies Allergy/AdvReac Type Severity Reaction Status Date / Time fluoxetine [From Prozac] Allergy Confusion Verified 02/28/24 11:05 lithium Allergy Rash Verified 02/28/24 11:05 Review of Systems Review of Systems: CONSTITUTIONAL: Denies fever, chills, or sweats. ENT: See HPI CARDIOVASCULAR: Denies chest pain RESPIRATORY: See HPI SKIN: See HPI MUSCULOSKELETAL: Denies back pain, extremity pain, myalgia. NEUROLOGIC: Denies headache, dizziness, numbness, or weakness. All systems reviewed & are unremarkable except as noted in HPI and below PMFSH Past Medical History Medical History Bipolar 1 disorder Migraines Surgical History Surgical History No pertinent past surgical history Family History Family History Mother Family history non-contributory Social History Social History Smoking status: Never smoker Alcohol intake: never Substance use: never Living arrangements: with family Gender identity (if verbalized by the patient): Female Spiritual care concerns: No Exam Narrative: GENERAL: Well appearing, obese with BMI of 33.0, non-toxic, in no acute distress. HEAD: Normocephalic, atraumatic. ENT: Mild posterior pharynx erythema. No tonsillar hypertrophy or exudate. Uvula midline. No oral mucosal lesions. Minimal swelling of upper lip. RESPIRATORY: Airway patent, respirations nonlabored. Clear to auscultation bilaterally, no rales, rhonchi, wheezing. CARDIOVASCULAR: Regular rate and rhythm without murmurs, rubs, or gallops. MUSCULOSKELETAL: Moves all extremities. No gross deformities. SKIN: Warm, dry, normal color. Scattered urticaria to lower back, buttocks, arms, lower abdomen around waistline, bilateral knees, hands. No blister lesions. No breakdown of s
[2024-02-28] MEDS: diphenhydrAMINE HCl INJ 50 MG/ML VIAL IV PUSH (11:06)
[2024-02-28] MEDS: methylPREDNISolone SOD SUCC 125 MG VIAL IV PUSH (11:10)
[2024-02-28] MEDS: SODIUM CHLORIDE 0.9% IV 1,000 ML 999 ML IV CONT (11:11)
[2024-02-28 11:33] LABS: Strep Group A RT-PCR NOT DETECTED (Negative)
[2024-02-28 11:34] VITALS: O2SAT 97
[2024-02-28 11:38] LABS: Influenza A QL RT-PCR Negative (Negative); Influenza B QL RT-PCR Negative (Negative); RSV RNA, RT-PCR Negative (Negative); SARS-CoV-2 RNA PCR Negative (Negative)
[2024-02-28 12:21] VITALS: BP 109/74; PULSE 99; RESP 17; O2SAT 100
[2024-02-28] MEDS: hydrOXYzine HCL 10 MG TABLET PO (13:05)
[2024-02-28 13:56] LABS: Monoscreen Negative (Negative); Negative Monotest Control Negative (Negative); Positive Monotest Control Positive (Positive)
[2024-02-28 14:03] VITALS: BP 137/79; PULSE 99; RESP 15; O2SAT 98
== END 2024-02-28 14:05 | disposition home or self-care (01) ==
PROVIDERS: Emergency Provider Physician Assistant; PCP Family Medicine
DX: L50.9 Urticaria, unspecified (principal); J06.9 Acute upper respiratory infection, unspecified; Z20.822 Contact with and (suspected) exposure to COVID-19; F31.9 Bipolar disorder, unspecified
CPT/HCPCS: 36415; 86308; 87637; 87651; 96361; 96374; 96375; 99284; A9270; J1200; J2919; J7030

== ENCOUNTER 2024-04-30 10:46 | Emergency (ER) | payer OTHER, SELFPAY ==
[2024-04-30 11:04] VITALS: BP 112/73; PULSE 82; RESP 20; TEMP 36.6; O2SAT 100
--- NOTE | 2024-04-30 11:27 | ED.SKABFB ---
HPI - Skin/Abscess/Foreign Bdy General Chief complaint: Skin/Abscess/Foreign Body Stated complaint: ingrown toenail right big toe Time Seen by Provider: 04/30/24 11:27 Source: patient Mode of arrival: ambulatory Limitations: no limitations History of Present Illness HPI narrative: 28 yo F presents with c/o infected to R great toenail for the past 3 to 4 days. Hx of ingrown toenails. [employer] Trouble Shooter out of town. Afebrile. All systems reviewed and negative except as noted above. Related Data Home Medications Medication Instructions Recorded Confirmed aripiprazole 15 mg tablet 15 mg PO DAILY 01/24/22 04/30/24 loratadine 10 mg tablet 10 mg PO DAILY 01/24/22 04/30/24 norethindrone 1 mg-ethinyl 1 tablet PO DAILY 01/24/22 04/30/24 estradiol 20 mcg (21)-iron 75 mg (7) tablet (Blisovi Fe 10/02 ()) paroxetine HCl 10 mg tablet 10 mg PO DAILY 01/24/22 04/30/24 acyclovir 400 mg tablet 400 mg PO DIRECTED 04/30/24 04/30/24 atogepant 60 mg tablet (Qulipta) 60 mg PO DIRECTED 04/30/24 04/30/24 cariprazine 3 mg capsule (Vraylar) 3 mg PO DIRECTED 04/30/24 04/30/24 cetirizine 10 mg tablet 10 mg PO DAILY 04/30/24 04/30/24 famotidine 20 mg tablet 20 mg PO DAILY 04/30/24 04/30/24 ferrous sulfate 325 mg (65 mg 325 mg PO DAILY 04/30/24 04/30/24 iron) tablet (FeroSul) lamotrigine 100 mg tablet 100 mg PO DIRECTED 04/30/24 04/30/24 propranolol 10 mg tablet 10 mg PO DAILY 04/30/24 04/30/24 topiramate 25 mg tablet 25 mg PO DIRECTED 04/30/24 04/30/24 trazodone 50 mg tablet 50 mg PO DAILY 04/30/24 04/30/24 ubrogepant 100 mg tablet (Ubrelvy) 100 mg PO DAILY 04/30/24 04/30/24 Allergies Allergy/AdvReac Type Severity Reaction Status Date / Time fluoxetine [From Prozac] Allergy Confusion Verified 04/30/24 10:51 lithium Allergy Rash Verified 04/30/24 10:51 Review of Systems Review of Systems: CONSTITUTIONAL: Denies fever, chills, or sweats. EYES: Denies visual changes, redness, or discharge. ENT: Denies rhinorrhea, congestion, sore throat, or otalgia. CARDIOVASCULAR: Denies chest pain, palpitations, or edema. RESPIRATORY: Denies cough or dyspnea. GASTROINTESTINAL: Denies abdominal pain, nausea, vomiting, or diarrhea. GENITOURINARY: Denies dysuria or hematuria. SKIN: Denies rash or itching. Reports redness, drainage, tenderness to right great toe. Cncern for ingrown toenail. MUSCULOSKELETAL: Denies back pain, joint pain, or myalgia. NEUROLOGIC: Denies headache, numbness, or weakness. PSYCHIATRIC: Denies anxiety or depression. All other systems reviewed are negative, except as documented in HPI. PMFSH Past Medical History Medical History Bipolar 1 disorder Migraines Surgical History Surgical History No pertinent past surgical history Family History Family History Mother Family history non-contributory Social History Social History Smoking status: Never smoker Alcohol intake: never Substance use: never Living arrangements: with family Gender identity (if verbalized by the patient): Female Spiritual care concerns: No Comments At time of signature, agree with nursing past medical, surgical, social and family history. There is no relevant family history pertinent to the presenting complaint. Exam Narrative: GENERAL: This is a well-nourished, well-developed patient, in no apparent distress. HEAD: normocephalic, atraumatic. EYES: PERRL. Sclera clear/white. Vision is grossly intact. EARS: External ears normal NOSE: External nose normal NECK: Neck supple, non-tender without lymphadenopathy, masses or thyromegaly. CARDIOVASCULAR: Regular rate and rhythm without murmurs, gallops, or rubs. RESPIRATORY: Clear to auscultation. Breath sounds equal bilaterally. No whee
== END 2024-04-30 11:40 | disposition home or self-care (01) ==
PROVIDERS: Emergency Provider Nurse Practitioner Family; PCP Family Medicine
DX: L60.0 Ingrowing nail (principal); F31.9 Bipolar disorder, unspecified
CPT/HCPCS: 99213; G0463

== ENCOUNTER 2024-11-13 12:12 | Emergency (ER) | payer OTHER, SELFPAY ==
[2024-11-13 12:22] VITALS: BP 123/80; PULSE 87; RESP 16; TEMP 36.8; O2SAT 100
--- NOTE | 2024-11-13 12:23 | ED.URI ---
HPI - URI/Sore Throat General Chief Complaint: Upper Respiratory Infection Stated Complaint: cough, head congestion sore throat Time Seen by Provider: 11/13/24 12:30 Source: patient, RN notes reviewed and old records reviewed Mode of arrival: ambulatory Limitations: no limitations History of Present Illness HPI Narrative: 28-year-old female presents to the [facility] with her step mom. Reports a cough since yesterday. Sinus congestion and a scratchy no throat since Related Data Home Medications ?Medication ?Instructions ?Recorded ?Confirmed ?Last Taken ?Type loratadine 10 mg tablet 10 mg PO DAILY 01/24/22 04/30/24 Unknown History acyclovir 400 mg tablet 400 mg PO DIRECTED 04/30/24 04/30/24 Unknown History atogepant 60 mg tablet (Qulipta) 60 mg PO DIRECTED 04/30/24 04/30/24 Unknown History cariprazine 3 mg capsule (Vraylar) 3 mg PO DIRECTED 04/30/24 04/30/24 Unknown History cetirizine 10 mg tablet 10 mg PO DAILY 04/30/24 04/30/24 Unknown History famotidine 20 mg tablet 20 mg PO DAILY 04/30/24 04/30/24 Unknown History lamotrigine 100 mg tablet 100 mg PO DIRECTED 04/30/24 04/30/24 Unknown History propranolol 10 mg tablet 10 mg PO DAILY 04/30/24 04/30/24 Unknown History topiramate 25 mg tablet 25 mg PO DIRECTED 04/30/24 04/30/24 Unknown History trazodone 50 mg tablet 50 mg PO DAILY 04/30/24 04/30/24 Unknown History ubrogepant 100 mg tablet (Ubrelvy) 100 mg PO DAILY 04/30/24 04/30/24 Unknown History Allergies Allergy/AdvReac Type Severity Reaction Status Date / Time fluoxetine (From Prozac) Allergy Confusion Verified 11/13/24 12:32 lithium Allergy Rash Verified 11/13/24 12:32 Review of Systems Review of Systems: All systems reviewed & are unremarkable except as noted in HPI and below Constitutional: Constitutional: Reports no additional constitutional complaints ENT: Reports as per HPI Cardiovascular: Cardiovascular: Reports no additional cardiovascular complaints, Denies chest pain and Denies dyspnea Respiratory: Respiratory: Reports as per HPI, Denies chest congestion, Reports cough and Denies dyspnea Musculoskeletal: Musculoskeletal: Reports no additional musculoskeletal complaints Integumentary/Breasts: Skin/Breast: Reports system reviewed and no additional complaints, except as docu [facility] Past Medical History Medical History Bipolar 1 disorder Migraines Surgical History Surgical History No pertinent past surgical history Family History Family History Mother Family history non-contributory Social History Social History Smoking status: Never smoker Alcohol intake: never Substance use: never Living arrangements: with family Gender identity (if verbalized by the patient): Female Spiritual care concerns: No Comments At the time of my signature, I reviewed and agree with the nursing past medical, surgical, social, and family history. There is no relevant family history pertinent to the patient complaint. Exam Const: General: cooperative, healthy appearing, comfortable, no acute distress, well developed, alert and well nourished Nutritional Appearance: well nourished Orientation/consciousness: patient oriented x3 Limitations: no limitations HENMT: Head: normal to inspection Ears: hearing grossly normal bilaterally, external ears normal, TM's normal bilaterally, EAC's normal, mastoids normal and no periauricular adenopathy Mouth: Yes Normal oral and palatal mucosa present, Yes lip normal, Yes tongue normal and Yes moist mucous membranes Throat: posterior oropharynx normal, uvula midline, postnasal drainage and no uvular edema Eyes: General: appearance normal, both eyes and all related structures Alignment and Position: alignment normal Neck: Neck: normal visual inspection, full ROM, no lymphadenopathy and no meningeal signs Chest: Chest palpation & inspection: normal inspection of the chest Resp: Effort & Inspection: normal respiratory effort and able to speak in complete sentences Auscultation: clear to auscultation bilaterally, no crackles, no rales, no rhonchi and no wheezes Cardio: Rate: regular rate Skin: General skin exam: normal color and no rashes or lesions noted Neuro: General: patient oriented x3, gait normal, moves all extremities and no meningeal signs Cognition (Neuro): normal cognition Speech: normal speech Gait exam (Neuro): Normal gait present Extrem: General: normal to inspection, full ROM, capillary refill normal and normal gait Psych: Appearance: grossly normal and well kempt Mental Status: mental status grossly normal Speech and movement: Normal speech and movement present and Clear speech present Affect: normal affect Attitude: cooperative Course Course Level of Care: Express Care Visit Vital Signs Vital signs: Vital Signs Temperature 98.2 F 11/13/24 12:22 Pulse Rate 87 11/13/24 12:22 Respiratory Rate 16 11/13/24 12:22 Blood Pressure 123/80 11/13/24 12:22 Pulse Oximetry 100 11/13/24 12:22 Oxygen Delivery Autopap 11/13/24 12:22 Temperature 98.2 F 11/13/24 12:22 Pulse Rate 87 11/13/24 12:22 Respiratory Rate 16 11/13/24 12:22 Blood Pressure 123/80 11/13/24 12:22 Pulse Oximetry 100 11/13/24 12:22 Oxygen Delivery Autopap 11/13/24 12:22 Reviewed MDM - URI/Sore Throat MDM Narrative Medical decision making narrative: Patient presents with mom, cough since yesterday. Sinus congestion for Wednesday or Wednesday Reports scratchy throat. Declined COVID testing. Flu and strep is negative Patient is appropriate for outpatient treatment with [id number] products. Discharge instructions reviewed with patient, as well as provided in writing per nursing staff. The instructions also include specific and strict return/GO TO THE ER as well as f/u information. All questions have been answered, and the patient deny any further questions with discharge and discharge plan. Some parts of this dictation were generated by voice recognition software and may contain typographical and/or grammatical inaccuracies. Lab Data Labs: Lab Results 11/13/24 Range/Units 12:45 POC Influenza A Ag Negative (Negative) POC Influenza B Ag Negative (Negative) POC Grp A Strep Screen Negative (Negative) Reviewed Critical Care Time Critical Care Time Critical Care Time: No Discharge Plan Discharge Clinical Impression: Upper respiratory infection Patient Disposition: Home, Self-Care Condition: Stable Instructions: Antibiotic Form, Upper Respiratory Infection (DC) Additional Instructions: Your rapid strep swab was negative today at [facility]. A throat culture will be sent to the laboratory for further testing. If the test is positive, you will receive a phone call within 48 hours and an appropriate antibiotic will be initiated at that time. Your rapid flu test was negative Your symptoms are likely due to a viral illness, which is not treated with antibiotics. Typically viral infections last 7-10 days, can linger for couple of weeks. It is very important to treat your symptoms. Drink plenty of water, Gatorade, Pedialyte, ice pops or Jell-O. -Alternate Tylenol and Motrin per package directions for fever or pain. You can alternate every 4 hours -Antihistamine medication such as Zyrtec/Claritin/Radha during the day can help improve symptoms. -doing daily nasal irrigations can help relieve pressure your sinuses. Things like a Neti pot -Use Flonase twice a day for 5 days then daily to help reduce the inflammation and dry up your sinuses. -You can also use Mucinex. Be sure to drink plenty of water with this medication at least 8 ounces with every dose and it is important to drink 8 to 10 glasses of water per day. Water is a natural decongestant -Eat and drink things that are easy to swallow, like tea or soup, or popsicles. -Oral rinses such as: Salt water gargles and/or may use topical anesthetic (eg. Chloraseptic spray) or lozenges to relieve dryness or throat pain). -Frequent hand washing or hand inclined railway operator is one of the best ways to prevent spread of infection. -Using a vaporizer or humidifier at night will also help thin secretions and help with coughing up phlegm. -Follow up with primary care provider in 7-10 days if condition is not improving - For new or worsening symptoms go directly to the nearest ER Patient Language: Slovenian Prescriptions: No Action loratadine 10 mg tablet 10 mg PO DAILY trazodone 50 mg tablet 50 mg PO DAILY cetirizine 10 mg tablet 10 mg PO DAILY topiramate 25 mg tablet 25 mg PO DIRECTED acyclovir 400 mg tablet 400 mg PO DIRECTED propranolol 10 mg tablet 10 mg PO DAILY famotidine 20 mg tablet 20 mg PO DAILY lamotrigine 100 mg tablet 100 mg PO DIRECTED Vraylar 3 mg capsule 3 mg PO DIRECTED Ubrelvy 100 mg tablet 100 mg PO DAILY Qulipta 60 mg tablet 60 mg PO DIRECTED Follow-up/Referrals: Johnnie,Mike Pena MD [Primary Care Provider] - 2 Weeks ([facility] follow-up) Time of Disposition: 12:50
[2024-11-13 13:03] LABS: EDINFLUASCREEN Negative (Negative); EDINFLUBSCREEN Negative (Negative)
[2024-11-13 13:04] LABS: EDSTREPNEGPOS1 Negative (Negative)
== END 2024-11-13 12:50 | disposition home or self-care (01) ==
PROVIDERS: Emergency Provider Nurse Practitioner; PCP Family Medicine
DX: J06.9 Acute upper respiratory infection, unspecified (principal); F31.9 Bipolar disorder, unspecified
CPT/HCPCS: 87081; 87804; 87880; 99213; G0463

== ENCOUNTER 2025-06-20 19:58 | Emergency (ER) | payer OTHER, SELFPAY ==
[2025-06-20 20:00] VITALS: BP 113/75; PULSE 100; RESP 20; TEMP 36.6; O2SAT 100
[2025-06-20 20:44] LABS: Add Urine Microscopic? NO; Appearance Urine Clear (Clear); Glucose Urine UA Negative (Negative); Leukocyte Esterase Ur Negative LEU/UL (Negative); Nitrate Urine Negative (Negative); Specific Grav Ur 1.010 (1.001-1.035)
[2025-06-20 20:56] LABS: Hematocrit 44.8 % (37.0-47.0); Hemoglobin 15.1 g/dL (12.0-15.0); Immature Granulocyte Percent A 0.2 % (0-0.5); Lymphocytes Absolute Auto 3.36 K/mm3 (0.9-3.2); Mean Corpuscular HGB Conc 33.7 g/dl (32-36); Mean Corpuscular Hemoglobin 30.0 pg (26-34); Mean Corpuscular Volume 88.9 fl (80-100); Nucleated Red Blood Cells Absolute Auto 0.000 K/mm3 (0.0-0.012); Nucleated Red Blood Cells Perc 0.0 % (0.0-0.2); Platelet Count Result 205 k/mm3 (150-375); Red Blood Count 5.04 M/mm3 (4.2-5.4); White Blood Count 9.1 K/mm3 (4.5-10.0)
[2025-06-20 21:05] LABS: Cannabinoid Screen Urine Negative (Negative)
[2025-06-20 21:09] LABS: Acetaminophen < 10 ug/mL (10-30); Alanine Aminotransferase 20 U/L (6-35); Albumin Level 4.8 g/dL (3.5-5.1); Alkaline Phosphatase 74 U/L (38-126); Anion Gap 12 mmol/L (4-12); Aspartate Amino Transferase 28 U/L (14-36); Bilirubin,Total 0.4 mg/dL (0.2-1.3); Blood Urea Nitrogen 15 mg/dL (7-17); Calcium 9.5 mg/dL (8.4-10.2); Carbon Dioxide 21 mmol/L (22-30); Chloride 107 mmol/L (98-107); Estimated CRCL calculation 81 ml/min; Estimated Glomerular Filt Rate 60; Glucose 101 mg/dL (65-110); Potassium 3.7 mmol/L (3.4-5.0); Salicylate < 1.0 mg/dL (2-20); Sodium 140 mmol/L (137-145); Total Protein 8.1 g/dL (6.3-8.2)
[2025-06-20 21:39] LABS: Thyroid Stimulating Hormone 13.400 uIU/mL (0.465-4.680)
[2025-06-20 22:03] LABS: Pregnancy On Board Control Positive
[2025-06-20] MEDS: LORazepam (*CRX) 0.5 MG TABLET PO (22:40)
--- NOTE | 2025-06-20 22:54 | ED.PSYCH ---
HPI - Psych General Chief Complaint: Psychiatric Symptoms <Allyn Mccartney TAB CUTTING MACHINE OPERATOR - Last Filed: 06/21/25 03:53> Stated Complaint: suicidal ideation <Allyn Mccartney APRN - Last Filed: 06/21/25 03:53> Time Seen by Provider: 06/20/25 20:05 <Allyn Mccartney APRN - Last Filed: 06/21/25 03:53> History of Present Illness HPI Narrative: Patient is a 29-year-old female who presents to the ER with worsening depression and suicidal ideation. She reports she has a history of depression and her symptoms have been worsening recently so her psychiatrist increased one of her medications. Patient reports she had a plan to use scissors to slit her wrists and kill herself. She endorses a history of a tubal ligation, migraines, hip pain, abnormal thyroid and previously diagnosed mental health conditions. Patient denies any chest pain, shortness a breath, recent fevers or urinary symptoms. She does endorse hip pain at the time of examination is requesting naproxen, which she takes at home. <Allyn Mccartney APRN - Last Filed: 06/21/25 03:53> Related Data Home Medications: Home Medications ?Medication ?Instructions ?Recorded ?Confirmed ?Last Taken ?Type loratadine 10 mg tablet 10 mg PO DAILY 01/24/22 04/30/24 Unknown History acyclovir 400 mg tablet 400 mg PO DIRECTED 04/30/24 04/30/24 Unknown History atogepant 60 mg tablet (Qulipta) 60 mg PO DIRECTED 04/30/24 04/30/24 Unknown History cariprazine 3 mg capsule (Vraylar) 3 mg PO DIRECTED 04/30/24 04/30/24 Unknown History cetirizine 10 mg tablet 10 mg PO DAILY 04/30/24 04/30/24 Unknown History famotidine 20 mg tablet 20 mg PO DAILY 04/30/24 04/30/24 Unknown History lamotrigine 100 mg tablet 100 mg PO DIRECTED 04/30/24 04/30/24 Unknown History propranolol 10 mg tablet 10 mg PO DAILY 04/30/24 04/30/24 Unknown History topiramate 25 mg tablet 25 mg PO DIRECTED 04/30/24 04/30/24 Unknown History trazodone 50 mg tablet 50 mg PO DAILY 04/30/24 04/30/24 Unknown History ubrogepant 100 mg tablet (Ubrelvy) 100 mg PO DAILY 04/30/24 04/30/24 Unknown History <Allyn Mccartney APRN - Last Filed: 06/21/25 03:53> Allergies/Adverse Reactions: Allergies Allergy/AdvReac Type Severity Reaction Status Date / Time fluox[facility] ([facility]) Allergy Confusion Verified 06/21/25 08:42 lithium Allergy Rash Verified 06/21/25 08:42 <Allyn Mccartney APRN - Last Filed: 06/21/25 03:53> Review of Systems Review of Systems: All systems reviewed & are unremarkable except as noted in HPI and below <Allyn Mccartney APRN - Last Filed: 06/21/25 03:53> PMFSH Past Medical History Medical History: Medical History Bipolar 1 disorder Migraines <Allyn Mccartney APRN - Last Filed: 06/21/25 03:53> Surgical History Surgical History: Surgical History No pertinent past surgical history <Allyn Mccartney APRN - Last Filed: 06/21/25 03:53> Family History Family History: Family History Mother Family history non-contributory <Allyn Mccartney APRN - Last Filed: 06/21/25 03:53> Social History Social History: Social History Smoking status: Never smoker Alcohol intake: never Substance use: never Substance use type: does not use Living arrangements: with family Gender identity (if verbalized by the patient): Female Spiritual care concerns: No <Allyn Mccartney APRN - Last Filed: 06/21/25 03:53> Exam Narrative: GENERAL: Well appearing, well-nourished, non-toxic, in no acute distress. HEAD: Normocephalic, atraumatic. NECK: Supple. No adenopathy, no masses. RESPIRATORY: Airway patent, respirations nonlabored. Clear to auscultation bilaterally, no rales, rhonchi, wheezing. CARDIOVASCULAR: Regular rate and rhythm without murmurs, rubs, or gallops. Peripheral pulses 2+ and equal bilaterally. ABDOMINAL: Soft, nontender, nondistended, no hepatosplenomegaly. Normoactive BS. MUSCULOSKELETAL: Moves all extremities. Strength/ROM intact without gross deformities. SKIN: Warm, dry, normal color. No rashes. NEURO: A&O X3. Speech clear. Cranial nerves II-XII intact. No ataxic movements. PSYCHIATRIC: Flat affect. Normal interaction. <Allyn Mccartney APRN - Last Filed: 06/21/25 03:53> Course Course Emergency Course: patient was signed out to me pending placement. It was reported that they have a history of bipolar disorder and major depressive disorder and some of their depression medications and recently been increased with there continuing to have suicidal ideation with intent. I was informed that patient had been accepted at a facility and filled out my portion of corresponding transfer paperwork. EMS transportation arranged. Patient remained stable without requiring anything overnight. <Fior Gao MD - Last Filed: 06/21/25 09:10> Vital Signs Vital signs: Vital Signs Temperature 97.8 F 06/20/25 20:00 Pulse Rate 100 06/20/25 20:00 Respiratory Rate 20 06/20/25 20:00 Blood Pressure 113/75 06/20/25 20:00 Pulse Oximetry 100 06/20/25 20:00 Temperature 98.3 F 06/21/25 07:47 Pulse Rate 99 06/21/25 07:47 Respiratory Rate 16 06/21/25 07:47 Blood Pressure 119/87 06/21/25 07:47 Pulse Oximetry 99 06/21/25 07:47 <Allyn Mccartney APRN - Last Filed: 06/21/25 03:53> Vital Signs Temperature 97.8 F 06/20/25 20:00 Pulse Rate 100 06/20/25 20:00 Respiratory Rate 20 06/20/25 20:00 Blood Pressure 113/75 06/20/25 20:00 Pulse Oximetry 100 06/20/25 20:00 Temperature 98.3 F 06/21/25 07:47 Pulse Rate 99 06/21/25 07:47 Respiratory Rate 16 06/21/25 07:47 Blood Pressure 119/87 06/21/25 07:47 Pulse Oximetry 99 06/21/25 07:47 <Fior Gao MD - Last Filed: 06/21/25 09:10> MDM - Psych MDM Narrative Medical decision making narrative: Patient is a 29-year-old female who presents to the ER with worsening depression and suicidal ideation. She reports she has a history of depression and her symptoms have been worsening recently so her psychiatrist increased one of her medications. Patient reports she had a plan to use scissors to slit her wrists and kill herself. She endorses a history of a tubal ligation, migraines, hip pain, abnormal thyroid and previously diagnosed mental health conditions. Patient denies any chest pain, shortness a breath, recent fevers or urinary symptoms. She does endorse hip pain at the time of examination is requesting naproxen, which she takes at home. Labs Ordered: CBC, CMP, TSH, COVID/flu/RSV, salicylate level, ethanol, Tylenol level, UA, UDS Imaging Ordered: None necessary Medications Ordered: Ativan 0.5 mg p.o. x 2 (pt requesting medication for anxiety), Naproxen 500 mg p.o. (for chronic hip pain), Trazadone (pt requesting for insomnia, takes at home) Results: Patient's TSH was elevated at 13.4 (known condition) Diagnosis: Suicidal ideation, major depressive disorder Consults: 2300-patient is medically cleared for psychiatric intake. Results of lab work shared with patient and her family. Patient's mother reports she has had abnormal thyroid results in past and her primary care provider is going to order a thyroid ultrasound. Her mother reports last time she was hospitalized was in [place] and it was approximately 14 years ago. After psychiatric intake evaluation it was advised patient be admitted to a psychiatric hospital for further evaluation and treatment. Patient and her family verbalized understanding and are in agreement with plan. <Allyn Mccartney APRN - Last Filed: 06/21/25 03:53> Differential Diagnosis Differential diagnosis: Likely suicidal ideation, bipolar disorder, depression and acute anxiety <Allyn Mccartney, TAB CUTTING MACHINE OPERATOR - Last Filed: 06/21/25 03:53> Lab Data Attestation: I reviewed the patient's lab results. <Allyn Lau MISTY Mccartney - Last Filed: 06/21/25 03:53> Result diagrams: 06/20/25 20:50 06/20/25 20:50 <Allyn Judi Mccartney APRN - Last Filed: 06/21/25 03:53> Labs: Lab Results 06/20/25 06/20/25 06/20/25 Range/Units 20:36 20:50 22:38 WBC 9.1 (4.5-10.0) K/mm3 RBC 5.04 (4.2-5.4) M/mm3 Hgb 15.1 H (12.0-15.0) g/dL Hct 44.8 (37.0-47.0) % MCV 88.9 (80-100) fl MCH 30.0 (26-34) pg MCHC 33.7 (32-36) g/dl RDW 12.2 (11.5-14.5) % Plt Count 205 (150-375) k/mm3 MPV 10.8 H (7.4-10.4) fl Immature Gran % (Auto) 0.2 (0-0.5) % Neut % (Auto) 54.9 (45.5-73.1) % Lymph % (Auto) 36.9 (18.3-44.2) % Wake % (Auto) 7.4 (2.6-8.5) % Eos % (Auto) 0.5 (0-4.4) % Baso % (Auto) 0.1 L (0.2-1.2) % Lymph # (Auto) 3.36 H (0.9-3.2) K/mm3 Wake # (Auto) 0.7 H (0.1-0.6) K/mm3 Eos # (Auto) 0.1 (0-0.3) K/mm3 Baso # (Auto) 0.0 (0.0-0.1) K/mm3 Abs Immat Gran (auto) 0.02 (0.00-0.031) K/mm3 Absolute Neuts (auto) 5.0 (1.3-6.7) K/mm3 Absolute Nucleated RBC 0.000 (0.0-0.012) K/mm3 Nucleated RBC % 0.0 (0.0-0.2) % Sodium 140 (137-145) mmol/L Potassium 3.7 (3.4-5.0) mmol/L Chloride 107 (98-107) mmol/L Carbon Dioxide 21 L (22-30) mmol/L Anion Gap 12 (4-12) mmol/L BUN 15 (7-17) mg/dL Creatinine 1.08 H (0.7-1.0) mg/dL Estim Creat Clear Calc 81 ml/min Estimated GFR 60 (59 - ) Glucose 101 (65-110) mg/dL Calcium 9.5 (8.4-10.2) mg/dL Total Bilirubin 0.4 (0.2-1.3) mg/dL AST 28 (14-36) U/L ALT 20 (6-35) U/L Alkaline Phosphatase 74 (38-126) U/L Total Protein 8.1 (6.3-8.2) g/dL Albumin 4.8 (3.5-5.1) g/dL TSH 13.400 H (0.465-4.680) uIU/mL Urine Color Yellow (Yellow) Urine Appearance Clear (Clear) Urine pH 5.5 (5.0-9.0) Ur Specific Cecil 1.010 (1.001-1.035) Urine Protein Negative (Negative) mg/dL Urine Glucose (UA) Negative (Negative) mg/dL Urine Ketones Negative (Negative) mg/dL Ur Blood (Man) Negative (Negative) Urine Nitrate Negative (Negative) Urine Bilirubin Negative (Negative) Urine Urobilinogen 0.2 (<2.0) mg/dL Leukocyte Esterase Rfl Negative (Negative) LORETTA/UL Urine Test Negative Salicylates < 1.0 L (2-20) mg/dL Urine Opiates Screen Negative (Negative) Urine Methadone Screen Negative (Negative) Acetaminophen < 10 L (10-30) ug/mL Ur Barbiturates Screen Negative (Negative) Ur Phencyclidine Scrn Negative (Negative) Ur Amphetamine Screen Negative (Negative) U Benzodiazepines Scrn Negative (Negative) Urine Cocaine Screen Negative (Negative) U Cannabinoids Screen Negative (Negative) Ethyl Alcohol < 10 (<10) mg/dL Influenza A (RT-PCR) Negative (Negative) Influenza B (RT-PCR) Negative (Negative) RSV (RT-PCR) Negative (Negative) SARS-CoV-2 RNA (RT-PCR) Negative (Negative) <Allyn Judi Mccartney, TAB CUTTING MACHINE OPERATOR - Last Filed: 06/21/25 03:53> Lab Results 06/20/25 06/20/25 06/20/25 Range/Units 20:36 20:50 22:38 WBC 9.1 (4.5-10.0) K/mm3 RBC 5.04 (4.2-5.4) M/mm3 Hgb 15.1 H (12.0-15.0) g/dL Hct 44.8 (37.0-47.0) % MCV 88.9 (80-100) fl MCH 30.0 (26-34) pg MCHC 33.7 (32-36) g/dl RDW 12.2 (11.5-14.5) % Plt Count 205 (150-375) k/mm3 MPV 10.8 H (7.4-10.4) fl Immature Gran % (Auto) 0.2 (0-0.5) % Neut % (Auto) 54.9 (45.5-73.1) % Lymph % (Auto) 36.9 (18.3-44.2) % Wake % (Auto) 7.4 (2.6-8.5) % Eos % (Auto) 0.5 (0-4.4) % Baso % (Auto) 0.1 L (0.2-1.2) % Lymph # (Auto) 3.36 H (0.9-3.2) K/mm3 Wake # (Auto) 0.7 H (0.1-0.6) K/mm3 Eos # (Auto) 0.1 (0-0.3) K/mm3 Baso # (Auto) 0.0 (0.0-0.1) K/mm3 Abs Immat Gran (auto) 0.02 (0.00-0.031) K/mm3 Absolute Neuts (auto) 5.0 (1.3-6.7) K/mm3 Absolute Nucleated RBC 0.000 (0.0-0.012) K/mm3 Nucleated RBC % 0.0 (0.0-0.2) % Sodium 140 (137-145) mmol/L Potassium 3.7 (3.4-5.0) mmol/L Chloride 107 (98-107) mmol/L Carbon Dioxide 21 L (22-30) mmol/L Anion Gap 12 (4-12) mmol/L BUN 15 (7-17) mg/dL Creatinine 1.08 H (0.7-1.0) mg/dL Estim Creat Clear Calc 81 ml/min Estimated GFR 60 (59 - ) Glucose 101 (65-110) mg/dL Calcium 9.5 (8.4-10.2) mg/dL Total Bilirubin 0.4 (0.2-1.3) mg/dL AST 28 (14-36) U/L ALT 20 (6-35) U/L Alkaline Phosphatase 74 (38-126) U/L Total Protein 8.1 (6.3-8.2) g/dL Albumin 4.8 (3.5-5.1) g/dL TSH 13.400 H (0.465-4.680) uIU/mL Urine Color Yellow (Yellow) Urine Appearance Clear (Clear) Urine pH 5.5 (5.0-9.0) Ur Specific Cecil 1.010 (1.001-1.035) Urine Protein Negative (Negative) mg/dL Urine Glucose (UA) Negative (Negative) mg/dL Urine Ketones Negative (Negative) mg/dL Ur Blood (Man) Negative (Negative) Urine Nitrate Negative (Negative) Urine Bilirubin Negative (Negative) Urine Urobilinogen 0.2 (<2.0) mg/dL Leukocyte Esterase Rfl Negative (Negative) LORETTA/UL Urine Test Negative Salicylates < 1.0 L (2-20) mg/dL Urine Opiates Screen Negative (Negative) Urine Methadone Screen Negative (Negative) Acetaminophen < 10 L (10-30) ug/mL Ur Barbiturates Screen Negative (Negative) Ur Phencyclidine Scrn Negative (Negative) Ur Amphetamine Screen Negative (Negative) U Benzodiazepines Scrn Negative (Negative) Urine Cocaine Screen Negative (Negative) U Cannabinoids Screen Negative (Negative) Ethyl Alcohol < 10 (<10) mg/dL Influenza A (RT-PCR) Negative (Negative) Influenza B (RT-PCR) Negative (Negative) RSV (RT-PCR) Negative (Negative) SARS-CoV-2 RNA (RT-PCR) Negative (Negative) <Fior G. Gao, MD - Last Filed: 06/21/25 09:10> Discharge Plan Discharge Clinical Impression: Major depressive disorder, Depression with suicidal ideation, Suicidal ideation <Allyn Mccartney APRN - Last Filed: 06/21/25 03:53> Patient Disposition: Psychiatric Hosp <Allyn Mccartney APRN - Last Filed: 06/21/25 03:53> Condition: Stable <Allyn Mccartney APRN - Last Filed: 06/21/25 03:53> Patient Language: Thai <Allyn Mccartney APRN - Last Filed: 06/21/25 03:53> Prescriptions: No Action loratadine 10 mg tablet 10 mg PO DAILY trazodone 50 mg tablet 50 mg PO DAILY cetirizine 10 mg tablet 10 mg PO DAILY topiramate 25 mg tablet 25 mg PO DIRECTED acyclovir 400 mg tablet 400 mg PO DIRECTED propranolol 10 mg tablet 10 mg PO DAILY famotidine 20 mg tablet 20 mg PO DAILY lamotrigine 100 mg tablet 100 mg PO DIRECTED Vraylar 3 mg capsule 3 mg PO DIRECTED Ubrelvy 100 mg tablet 100 mg PO DAILY Qulipta 60 mg tablet 60 mg PO DIRECTED <Allyn Mccartney APRN - Last Filed: 06/21/25 03:53> Follow-up/Referrals: Johnnie,Mike Pena MD [Primary Care Provider] <Allyn Mccartney APRN - Last Filed: 06/21/25 03:53>
[2025-06-20 23:17] LABS: Influenza A QL RT-PCR Negative (Negative); Influenza B QL RT-PCR Negative (Negative); RSV RNA, RT-PCR Negative (Negative); SARS-CoV-2 RNA PCR Negative (Negative)
[2025-06-20] MEDS: NAPROXEN 500 MG TABLET PO (23:18)
[2025-06-21] MEDS: LORazepam (*CRX) 0.5 MG TABLET PO (03:57)
[2025-06-21 07:47] VITALS: BP 119/87; PULSE 99; RESP 16; TEMP 36.8; O2SAT 99
[2025-06-21 09:27] VITALS: BP 120/74; PULSE 102; RESP 17; TEMP 36.7; O2SAT 97
[2025-06-21 09:59] VITALS: BP 148/82; PULSE 112; RESP 17; TEMP 36.9; O2SAT 99
== END 2025-06-21 10:00 ==
PROVIDERS: Emergency Provider Registered Nurse; PCP Family Medicine
DX: F31.9 Bipolar disorder, unspecified (principal); R45.851 Suicidal ideations; Z11.52 Encounter for screening for COVID-19
CPT/HCPCS: 36415; 80053; 80143; 80179; 80307; 81003; 81025; 82077; 84443; 85025; 87637; 99285; A9270

== ENCOUNTER 2025-07-08 11:59 | Emergency (ER) | payer OTHER, SELFPAY ==
[2025-07-08 12:14] VITALS: BP 107/69; PULSE 87; RESP 18; TEMP 36.9; O2SAT 100
--- NOTE | 2025-07-08 12:36 | ED.URI ---
HPI - URI/Sore Throat General Chief Complaint: Upper Respiratory Infection Stated Complaint: Sore Throat Time Seen by Provider: 07/08/25 12:36 Source: patient, family, RN notes reviewed and old records reviewed Mode of arrival: ambulatory Limitations: no limitations History of Present Illness HPI Narrative: 29 year old female accompanied by mother presents to express care with complaints of one day history of sore throat painful hard to swallow,nasal congestion with post nasal drainage and dry cough.. Patient reports no body aches, any fevers, chills,headache or any nausea vomiting and diarrhea. Patient reports that she has been using Mucinex spray. Herbal tea with honey and has taken Zyrtec. Patient reports that appetite is decreased but is drinking fluids well. Patient was seen in the ED on the June for suicidal ideation and was transferred to psych facility with medication adjustments made, reports is feeling less depressed, lives with mother who will frequently answer questions for patient even when directed to patient. MD elicited complaint: cough (dry), sore throat, nasal congestion and other Onset (ago): day(s) (1) Pain scale (0-10): 4 Able to tolerate fluids by mouth: Yes Treatments prior to arrival: other (Mucinex Zyrtec, and also herbal tea with honey) Related Data Home Medications ?Medication ?Instructions ?Recorded ?Confirmed ?Last Taken ?Type loratadine 10 mg tablet 10 mg PO DAILY 01/24/22 04/30/24 Unknown History acyclovir 400 mg tablet 400 mg PO DIRECTED 04/30/24 07/08/25 Unknown History atogepant 60 mg tablet (Qulipta) 60 mg PO DIRECTED 04/30/24 04/30/24 Unknown History cariprazine 3 mg capsule (Vraylar) 3 mg PO DIRECTED 04/30/24 04/30/24 Unknown History cetirizine 10 mg tablet 10 mg PO DAILY 04/30/24 04/30/24 Unknown History famotidine 20 mg tablet 20 mg PO DAILY 04/30/24 04/30/24 Unknown History lamotrigine 100 mg tablet 100 mg PO DIRECTED 04/30/24 04/30/24 Unknown History propranolol 10 mg tablet 10 mg PO DAILY 04/30/24 04/30/24 Unknown History topiramate 25 mg tablet 25 mg PO DIRECTED 04/30/24 04/30/24 Unknown History trazodone 50 mg tablet 50 mg PO DAILY 04/30/24 04/30/24 Unknown History ubrogepant 100 mg tablet (Ubrelvy) 100 mg PO DAILY 04/30/24 04/30/24 Unknown History bupropion HCl 150 mg 24 hr tablet, mg PO 07/08/25 Unknown History extended release fexofenadine 180 mg tablet mg 07/08/25 Unknown History hydroxyzine pamoate 25 mg capsule mg 07/08/25 Unknown History levothyroxine 25 mcg tablet mcg 07/08/25 Unknown History medroxyprogesterone 150 mg/mL mg IM 07/08/25 Unknown History intramuscular syringe Allergies Allergy/AdvReac Type Severity Reaction Status Date / Time fluoxetine (From Coupad) Allergy Confusion Verified 07/08/25 12:10 lithium Allergy Rash Verified 07/08/25 12:10 Review of Systems Review of Systems: CONSTITUTIONAL: Denies malaise, chills, sweats, or fever. EYES: Denies visual changes, redness, or discharge. ENT: Reports rhinorrhea, congestion, sinus pressure ,no otalgia and positive for sore throat. CARDIOVASCULAR: Denies chest pain, palpitations, or edema. RESPIRATORY: Reports dry cough.? Denies dyspnea. GASTROINTESTINAL: Denies abdominal pain, nausea, vomiting, diarrhea SKIN: Denies rash or itching. MUSCULOSKELETAL: Denies myalgia. NEUROLOGIC: Denies headache. All systems reviewed & are unremarkable except as noted in HPI and below PMFSH Past Medical History Medical History (Updated 07/08/25 @ 19:54 by Daria Her APRN) Right hip impingement syndrome tear repair Personality disorder Hypothyroidism Depression Bipolar 1 disorder Migraines Surgical History Surgical History No pertinent past surgical history Family History Family History Mother Family history non-contributory Social History Social History Smoking status: Never smoker Alcohol intake: never Substance use: never Substance use type: does not use Living arrangements: with family Gender identity (if verbalized by the patient): Female Spiritual care concerns: No Comments At time of signature, agree with nursing past medical, surgical, social and family history. There is no relevant family history pertinent to the presenting complaint Exam Narrative: GENERAL: Well-appearing, well-nourished, and in no acute distress. HEAD: Normocephalic EYES: PERRLA, conjunctivae clear ENT: Nares clear, turbinates edematous and erythematous, clear discharge. Mucous membranes moist. TM pearly [place] with dull light reflex bilaterally; no tragal tenderness. Oropharynx erythematous without lesions. Tonsils not enlarged and without exudate, no drooling, no hoarseness, no trismus, uvula midline.post nasal drainage NECK: Supple. No lymphadenopathy CHEST: Clear to auscultation, breath sounds equal. No wheezing, rhonchi, rales, or stridor. No respiratory distress, speaks in full sentences. dry cough noted,SAO2 100% on room air HEART: Regular rate and rhythm. No murmur heard. SKIN: Warm, dry, no rash. NEURO: Alert and oriented x3. PSYCH: Normal mood and affect, makes eye contact, mother answers questions for patient frequently Course Course Emergency Course: Patient is aware of diagnosis, understands and agrees to treatment plan.? Anticipatory guidance given.? Patient agrees to follow-up as directed and is aware of reasons to seek care at the emergency department. Portions of this record may have been created with voice recognition software Level of Care: Express Care Visit Vital Signs Vital signs: Vital Signs Temperature 36.9 C 07/08/25 12:14 Pulse Rate 87 07/08/25 12:14 Respiratory Rate 18 07/08/25 12:14 Blood Pressure 107/69 07/08/25 12:14 Pulse Oximetry 100 07/08/25 12:14 Oxygen Delivery Room Air 07/08/25 12:14 Temperature 36.9 C 07/08/25 12:14 Pulse Rate 87 07/08/25 12:14 Respiratory Rate 18 07/08/25 12:14 Blood Pressure 107/69 07/08/25 12:14 Pulse Oximetry 100 07/08/25 12:14 Oxygen Delivery Room Air 07/08/25 12:14 Reviewed MDM - URI/Sore Throat MDM Narrative Medical decision making narrative: Differential diagnosis considered: [place] virus, strep pharyngitis, allergic rhinitis, upper respiratory tract infection, sinusitis, rhinosinusitis, nasopharyngitis. viral pharyngitis, otitis media, otitis externa, pneumonia, bronchitis, viral cough syndrome, viral syndrome, and influenza.? Exam findings show no acute concerns or changes; patient is non-toxic appearing and is in no distress.? Patient is appropriate for outpatient treatment and follow-up. Differential Diagnosis Differential diagnosis: Likely upper respiratory infection, viral infection, pharyngitis and other (strep pharyngitis) Medical Records Attestation: I reviewed the patient's medical records. Lab Data Attestation: I reviewed the patient's lab results. Lab results narrative: strep screen negative, culture sent Labs: Lab Results 07/08/25 Range/Units 12:38 POC Grp A Strep Screen Negative (Negative) Critical Care Time Critical Care Time Critical Care Time: No Discharge Plan Discharge Clinical Impression: Sore throat Upper respiratory infection Qualifiers: URI type: unspecified URI Qualified Code(s): J06.9 - Acute upper respiratory infection, unspecified Patient Disposition: Home Condition: Stable Instructions: Antibiotic Form, Pharyngitis (ED) Additional Instructions: Increase fluids especially juices and water [id number] cough and cold medicine of your choice for your symptoms Zyrtec Claritin or Radha daily may use plain Sudafed for sinus drainage heat to the face 20-30 minutes 4-6 times a day for pain Salt water gargles, throat lozenges or throat sprays as desired Medrol Dosepak take as prescribed If your symptoms persist, change or worsen significantly before you can contact your personal physician then please, without delay, go to the emergency department for further evaluation. Follow-up with PCP in 7-10 days or sooner if needed Patient Language: Upper Sorbian Prescriptions: New methylprednisolone [Medrol (Basil)] 4 mg tablets,dose pack See Rx Instructions .ROUTE .COMPLEX Qty: 21 0RF Rx Instructions: orally per package directions No Action loratadine 10 mg tablet 10 mg PO DAILY trazodone 50 mg tablet 50 mg PO DAILY cetirizine 10 mg tablet 10 mg PO DAILY topiramate 25 mg tablet 25 mg PO DIRECTED acyclovir 400 mg tablet 400 mg PO DIRECTED propranolol 10 mg tablet 10 mg PO DAILY famotidine 20 mg tablet 20 mg PO DAILY lamotrigine 100 mg tablet 100 mg PO DIRECTED Vraylar 3 mg capsule 3 mg PO DIRECTED Ubrelvy 100 mg tablet 100 mg PO DAILY Qulipta 60 mg tablet 60 mg PO DIRECTED fexofenadine 180 mg tablet levothyroxine 25 mcg tablet hydroxyzine pamoate 25 mg capsule medroxyprogesterone 150 mg/mL syringe IM bupropion HCl 150 mg tablet extended release 24 hr PO Follow-up/Referrals: Johnnie,Mike Pena MD [Primary Care Provider] Time of Disposition: 13:28 Quality [place] Coma Scale Eyes: Open Verbal: Oriented and Alert Motor: Follows Commands Gwyn Coma Total Score: 15
[2025-07-08 12:40] LABS: EDSTREPNEGPOS1 Negative (Negative)
== END 2025-07-08 13:35 | disposition home or self-care (01) ==
PROVIDERS: Emergency Provider Registered Nurse; PCP Family Medicine
DX: J02.9 Acute pharyngitis, unspecified (principal); J06.9 Acute upper respiratory infection, unspecified; E03.9 Hypothyroidism, unspecified; F31.9 Bipolar disorder, unspecified
CPT/HCPCS: 87081; 87880; 99213; G0463